=== PATIENT | female | born 1965 | race Hispanic/Latino ===

== ENCOUNTER 2017-12-24 07:02 | Emergency (ER) | payer SELFPAY ==
[2017-12-24] MEDS ORDERED: NA CHLORIDE 0.9% 1,000 ML ONE (07:19)
[2017-12-24] MEDS ORDERED: ONDANSETRON 4 MG/2 ML VIAL ONE (07:19)
[2017-12-24 07:42] LABS: Absolute Lymphocytes (CBC) 2.1 K/uL (0.7-4.9); Absolute Monocytes 0.5 K/uL (0.1-1.3); Absolute Neutrophil 2.8 K/uL (1.8-8.0); Basophils % 1.3 % (0-1.3); Eosinophils % 1.8 % (0-4.4); Hematocrit 43.4 % (36.0-45.0); MCH 31.7 pg (27.0-35.0); MCV 93.6 fL (80-100); MPV 8.4 fL (7.6-11.3); Monocytes % 8.2 % (3.3-12.3); RBC Red Blood Cell Count 4.64 M/uL (3.86-4.86)
[2017-12-24 07:46] LABS: Bicarbonate 22 mEq/L (21-31); Glucose Level 102 mg/dL (65-120); Potassium 4.1 mEq/L (3.6-5.0); Sodium Level 137 mEq/L (135-145)
[2017-12-24 07:49] LABS: BUN Blood Urea Nitrogen 12 mg/dL (6-20); Creatine Phosphokinase 207 IU/L (22-269)
[2017-12-24] MEDS ORDERED: MORPHINE 4 MG/ML SYR ONE (07:52)
[2017-12-24 07:55] LABS: CKMB Creatine Kinase MB 2.2 ng/ml (0.3-4.0)
[2017-12-24 08:25] LABS: Thyroid Stimulating Hormone 2.94 uIU/mL (0.34-5.60)
[2017-12-24 08:37] LABS: Alcohol Serum/Plasma < 10 mg/dl
--- NOTE | 2017-12-24 08:51 | RAD REPORT ---
EXAM DESCRIPTION: Ramu Single View12/24/2017 7:26 am CLINICAL HISTORY: Chest pain COMPARISON: 2015 FINDINGS: The lungs appear clear of acute infiltrate. The heart is normal size IMPRESSION: No acute abnormalities displayed
[2017-12-24 09:30] LABS: Barbiturates NEGATIVE; Benzodiazepines NEGATIVE; Cocaine NEGATIVE; METHAMPHETAM NEGATIVE; Opiates POSITIVE; Phencyclidine NEGATIVE; THC Cannibis NEGATIVE
[2017-12-24 09:41] LABS: Urine Blood NEGATIVE (NEG); Urine Glucose NEGATIVE (NEG); Urine Protein NEGATIVE (NEG); Urine Specific Gravity >1.030 (1.005-1.030); Urine pH 5.5 (5.0-7.0)
--- NOTE | 2017-12-24 09:55 | ER ---
Nurse's Notes [facility] Name: Angelica Wen Age: 52 yrs Sex: Female : 1965 Arrival Date: 12/24/2017 Time: 07:05 Bed 20 Private MD: Diagnosis: Chest pain, unspecified;Palpitations Presentation: 12/24 07:28 Presenting complaint: Patient states: Patient states sudden chest pain awoke her from ae1 her sleep at approx. 0100 this morning. pain radiates to left arm and she reports left arm feels "tingly". Transition of care: patient was not received from another setting of care. Onset of symptoms was December 24, 2017 at 01:00. Care prior to arrival: None. 07:28 Method Of Arrival: Ambulatory ae1 07:32 Acuity: DEVON 3 ae1 08:54 Initial Sepsis Screen: Does the patient meet any 2 criteria? RR > 20 per min. HR > 90 ae1 bpm. No. Patient's initial sepsis screen is negative. Does the patient have a suspected source of infection? No. Patient's initial sepsis screen is negative. 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 - Social history:: Smoking status: Patient uses tobacco products, smokes one pack cigarettes per day. - Family history:: not pertinent. - Hospitalizations: : No recent hospitalization is reported. Screenin:30 Abuse screen: Denies threats or abuse. Nutritional screening: No deficits noted. ae1 Tuberculosis screening: No symptoms or risk factors identified. Fall Risk None identified. Assessment: 07:18 Reassessment: [employer] Dried Salt at bedside obtaining chest x-ray. ae1 07:25 General: Appears distressed, uncomfortable, Behavior is cooperative, anxious, restless. ae1 Pain: Complains of pain in chest and left arm Pain radiates to left hand and left arm. Pain: Pain began suddenly. Neuro: Level of Consciousness is awake, alert, obeys commands, Oriented to person, place, time, situation. Cardiovascular: Heart tones S1 S2 present Patient's skin is warm and dry. Rhythm is regular. Respiratory: Airway is patent Respiratory effort is even, unlabored, shallow, Respiratory pattern is regular, symmetrical, Breath sounds are clear bilaterally. GI: Reports nausea, vomiting. : No signs and/or symptoms were reported regarding the genitourinary system. Reports Patient states she cannot urinate at this time as she already urinated prior to arrival. EENT: No signs and/or symptoms were reported regarding the EENT system. Derm: No signs and/or symptoms reported regarding the dermatologic system. Musculoskeletal: No signs and/or symptoms reported regarding the musculoskeletal system. 07:35 Reassessment: network technical analyst at bedside. ae1 07:57 Reassessment: Patient and/or family updated on plan of care and expected duration. Pain ae1 level reassessed. General: Behavior is cooperative, anxious. Neuro: Level of Consciousness is awake, alert, obeys commands. 08:35 Reassessment: Patient appears in no apparent distress at this time. Patient appears ae1 more relaxed. Patient states feeling better. 09:48 Reassessment: Patient appears in no apparent distress at this time. Patient and/or ae1 family updated on plan of care and expected duration. Pain level reassessed. Patient states symptoms have improved. 10:17 Reassessment: Patient appears in no apparent distress at this time. Patient denies pain ae1 at this time. Patient states symptoms have improved. Vital Signs: 07:15 BP 150 / 108; Pulse 117; Resp 24; Temp 98.2; Pulse Ox 100% on R/A; Weight 68.04 kg (R); ae1 07:33 BP 129 / 88; Pulse 93; Resp 19; Pulse Ox 96% on R/A; ae1 08:34 BP 121 / 73; Pulse 108; Resp 19; Pulse Ox 99% on R/A; ae1 09:49 BP 115 / 80; Pulse 103; Resp 19; Pulse Ox 97% on R/A; ae1 ED Course: 07:05 Patient arrived in ED. rg4 07:06 Edda Garcia MD is Attending Physician. ma2 07:06 Attending Physician role handed off by Edda Garcia MD rn 07:06 Modesto Saxena MD is Attending Physician. rn 07:15 Urbano, Joaquín, RN is Primary Nurse. ae1 07:20 Initial lab(s) drawn, by me, sent to lab. Inserted saline lock: 22 gauge in right hj antecubital area, using aseptic technique. Blood collected. 07:26 XRAY Chest (1 view) In Process Unspecified. EDMS 07:30 Patient maintains SpO2 saturation greater than 95% on room air. ae1 07:30 Placed in gown. Bed in low position. Call light in reach. Side rails up X2. Adult w/ ae1 patient. quality assurance monitor on. Pulse ox on. NIBP on. Warm blanket given. 07:30 Arm band placed on right wrist. ae1 07:32 Triage completed. ae1 07:44 EKG done, by network technical analyst. reviewed by Modesto Saxena MD. tc 10:17 No provider procedures requiring assistance completed. IV discontinued, intact, ae1 bleeding controlled, No redness/swelling at site. Pressure dressing applied. Administered Medications: 07:25 Drug: NS 0.9% 1000 ml Route: IV; Rate: 1000 ml; Site: right antecubital; ae1 08:53 Follow up: IV Status: Completed infusion ae1 07:25 Drug: Zofran 4 mg Route: IVP; Site: right antecubital; ae1 07:57 Follow up: Response: Nausea is decreased ae1 07:51 Drug: morphine 4 mg Route: IVP; Site: right antecubital; ae1 08:51 Follow up: Response: Pain is decreased ae1 Outcome: 09:55 Discharge ordered by . rn 10:18 Discharged to home ambulatory, with significant other. ae1 10:18 Condition: stable 10:18 Discharge instructions given to patient, significant other, Instructed on discharge instructions, follow up and referral plans. Demonstrated understanding of instructions. 10:19 Patient left the ED. ae1 Signatures: Dispatcher [employer] EDMS Modesto Saxena MD MD rn Callis, Tiffany, clinic mgr EKG Ttc William [place] RN RN hj Elliott, Andrea, RN RN ae1 Susan Ahumada rg4 Edda Garcia MD MD ma2
--- NOTE | 2017-12-24 09:56 | EDPHYS ---
Physician Documentation [facility] Name: Angelica Wen Age: 52 yrs Sex: Female : 1965 Arrival Date: 12/24/2017 Time: 07:05 Bed 20 Private MD: ED Physician Modesto Saxena HPI: 12/24 07:14 This 52 yrs old Female presents to ER via Unassigned with complaints of Chest rn Pain. 07:14 The patient or guardian reports chest pain that is located primarily in the substernal rn area. Onset: this morning. The pain radiates to the left arm. Associated signs and symptoms: Pertinent positives: lightheadedness, palpitations, Pertinent negatives: cough, diaphoresis, headache, lower extremity pain, lower extremity swelling, shortness of breath, syncope, vomiting. The chest pain is described as a heaviness, a pressure. Duration: The patient or guardian reports multiple episodes, that are intermittent. Modifying factors: The symptoms are alleviated by nothing. the symptoms are aggravated by nothing. Severity of pain: At its worst the pain was moderate in the emergency department the pain is unchanged. The patient has not experienced similar symptoms in the past. Reports chest pain and palpitations since 0100, woke her up from sleep, + pressure, + tingling of left arm. . 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 - Social history:: Smoking status: Patient uses tobacco products, smokes one pack cigarettes per day. - Family history:: not pertinent. - Hospitalizations: : No recent hospitalization is reported. ROS: 07:14 Constitutional: Negative for fever, chills, and weight loss, Eyes: Negative for injury, rn pain, redness, and discharge, Neck: Negative for injury, pain, and swelling, Cardiovascular: Negative for edema Respiratory: Negative for shortness of breath, cough, wheezing, and pleuritic chest pain, Abdomen/GI: Negative for abdominal pain, nausea, vomiting, diarrhea, and constipation, Back: Negative for injury and pain, MS/Extremity: Negative for injury and deformity, Skin: Negative for injury, rash, and discoloration, Neuro: Negative for headache, weakness, and seizure. Exam: 07:14 Constitutional: This is a well developed, well nourished patient who is awake, alert, rn appears anxious and concerned Head/Face: Normocephalic, atraumatic. Eyes: Pupils equal round and reactive to light, extra-ocular motions intact. Lids and lashes normal. Conjunctiva and sclera are non-icteric and not injected. Cornea within normal limits. Periorbital areas with no swelling, redness, or edema. Neck: Trachea midline, no thyromegaly or masses palpated, and no cervical lymphadenopathy. Supple, full range of motion without nuchal rigidity, or vertebral point tenderness. No Meningismus. Cardiovascular: tachycardic, regular, no murmur Respiratory: + mild tachypnea, no retractions, clear and equal breath sounds Abdomen/GI: Soft, non-tender, with normal bowel sounds. No distension or tympany. No guarding or rebound. No evidence of tenderness throughout. MS/ Extremity: Pulses equal, no cyanosis. Neurovascular intact. Full, normal range of motion. Equal circumference. Neuro: Awake and alert, GCS 15, oriented to person, place, time, and situation. Cranial nerves II-XII grossly intact. Motor strength 5/5 in all extremities. Sensory grossly intact. Cerebellar exam normal. Normal gait. 08:08 ECG was reviewed by the Attending Physician. rn Vital Signs: 07:15 BP 150 / 108; Pulse 117; Resp 24; Temp 98.2; Pulse Ox 100% on R/A; Weight 68.04 kg (R); ae1 07:33 BP 129 / 88; Pulse 93; Resp 19; Pulse Ox 96% on R/A; ae1 08:34 BP 121 / 73; Pulse 108; Resp 19; Pulse Ox 99% on R/A; ae1 09:49 BP 115 / 80; Pulse 103; Resp 19; Pulse Ox 97% on R/A; ae1 MDM: 07:07 Patient medically screened. rn 09:53 Differential diagnosis: acute myocardial infarction, acute pericarditis, anxiety, rn coronary artery disease costochondritis, esophagitis, gastritis, gastroesophageal reflux disease (GERD), pericarditis, pleurisy, pneumothorax. Data reviewed: vital signs, nurses notes, lab test result(s), EKG, radiologic studies, plain films, and as a result, I will discharge patient. Counseling: I had a detailed discussion with the patient and/or guardian regarding: the historical points, exam findings, and any diagnostic results supporting the discharge/admit diagnosis, lab results, radiology results, the need for outpatient follow up, to return to the emergency department if symptoms worsen or persist or if there are any questions or concerns that arise at home. Medical screen evaluation completed. [facility] emergency medical condition absent. Response to treatment: the patient's symptoms have markedly improved after treatment, symptom free, sleeping, and as a result, I will discharge patient. Special discussion: Based on the patient's history, exam, and Dx evaluation, there is no indication for emergent intervention or inpatient Tx. It is understood by the patient/guardian that if the Sx's persist or worsen they need to return immediately for re-evaluation. I discussed with the patient/guardian in detail that at this point there is no indication for admission to the hospital. It is understood, however, that if the symptoms persist or worsen the patient needs to return immediately for re-evaluation. ED course: Advised ETOh and smoking cessation, labs normal, repeat trop normal, UPT slight positive but beta negative, will dc home.. 12/24 07:13 Order name: Basic Metabolic Panel; Complete Time: 08:53 rn 12/24 07:13 Order name: BNP; Complete Time: 08: rn 12/24 07:13 Order name: CBC with Diff; Complete Time: 08: rn 12/24 07:13 Order name: Ckmb; Complete Time: 08: rn 12/24 07:13 Order name: CPK; Complete Time: 08:53 rn 12/24 07:13 Order name: Troponin (emerg Dept Use Only); Complete Time: 08:04 rn 12/24 07:13 Order name: Urine Drug Screen; Complete Time: 09:35 rn 12/24 07:13 Order name: ETOH Level; Complete Time: 08:53 rn 12/24 07:13 Order name: TSH; Complete Time: 08:53 rn 12/24 07:13 Order name: T4 Free; Complete Time: 08:53 rn 12/24 08:53 Order name: Troponin I; Complete Time: 09:46 ae1 12/24 09:13 Order name: HCG-Quantitative; Complete Time: 10:06 rn 12/24 09:23 Order name: Urine Dipstick--Ancillary (enter results); Complete Time: 09:46 bd 12/24 09:23 Order name: Urine --Ancillary (enter results); Complete Time: 09:46 bd 12/24 07:13 Order name: Urine Test (obtain specimen); Complete Time: 08:52 rn 12/24 07:13 Order name: XRAY Chest (1 view); Complete Time: 08:53 rn 12/24 07:13 Order name: EKG; Complete Time: 07:14 rn 12/24 07:13 Order name: Cardiac monitoring; Complete Time: 07:15 rn 12/24 07:13 Order name: EKG - Nurse/Tech; Complete Time: 07:47 rn 12/24 07:13 Order name: IV Saline Lock; Complete Time: 07:25 rn 12/24 07:13 Order name: Labs collected and sent; Complete Time: 07:25 rn 12/24 07:13 Order name: O2 Per Protocol; Complete Time: 07:15 rn 12/24 07:13 Order name: O2 Sat Monitoring; Complete Time: 07:15 rn 12/24 07:13 Order name: Urine Dipstick-Ancillary (obtain specimen); Complete Time: 08:52 rn EC:08 Rate is 94 beats/min. Rhythm is regular. QRS [place] is Normal. LA interval is normal. QRS rn interval is normal. QT interval is normal. No Q waves. T waves are Normal. No ST changes noted. Clinical impression: Normal ECG. Interpreted by me. Administered Medications: 07:25 Drug: NS 0.9% 1000 ml Route: IV; Rate: 1000 ml; Site: right antecubital; ae1 08:53 Follow up: IV Status: Completed infusion ae1 07:25 Drug: Zofran 4 mg Route: IVP; Site: right antecubital; ae1 07:57 Follow up: Response: Nausea is decreased ae1 07:51 Drug: morphine 4 mg Route: IVP; Site: right antecubital; ae1 08:51 Follow up: Response: Pain is decreased ae1 Disposition: 12/24/17 09:55 Discharged to Home. Impression: Chest pain, unspecified, Palpitations. - Condition is Stable. - Discharge Instructions: Nonspecific Chest Pain, Palpitations. - Medication Reconciliation Form, Thank You Letter, Antibiotic Education, Prescription Opioid Use form. - Follow up: Private Physician; When: As needed; Reason: Recheck today's complaints, Re-evaluation by your physician. - Problem is new. - Symptoms have improved. Signatures: Dispatcher [employer] EDMS Modesto Saxena MD MD rn Joaquín Clement RN RN ae1 Corrections: (The following items were deleted from the chart) 07:16 07:14 Constitutional: Negative for fever, chills, and weight loss, Eyes: Negative for rn injury, pain, redness, and discharge, Neck: Negative for injury, pain, and swelling, Cardiovascular: Negative for edema Respiratory: Negative for shortness of breath, cough, wheezing, and pleuritic chest pain, Abdomen/GI: Negative for abdominal pain, nausea, vomiting, diarrhea, and constipation, Back: Negative for injury and pain, MS/Extremity: Negative for injury and deformity, Skin: Negative for injury, rash, and discoloration, Neuro: Negative for headache, weakness, numbness, tingling, and seizure, rn 10:19 09:55 12/24/2017 09:55 Discharged to Home. Impression: Chest pain, unspecified; ae1 Palpitations. Condition is Stable. Forms are Medication Reconciliation Form, Thank You Letter, Antibiotic Education, Prescription Opioid Use. Follow up: Private Physician; When: As needed; Reason: Recheck today's complaints, Re-evaluation by your physician. Problem is new. Symptoms have improved. rn
[2017-12-24 10:24] VITALS: TEMP 98.2
[2017-12-24 10:27] VITALS: BP 115/80; O2SAT 97
--- NOTE | 2017-12-24 11:06 | EKG ---
Test Date: 2017-12-24 Test Time: 07:36:20 Fish Boning Machine Feeder: ROSA ELENA MEASUREMENT RESULTS: Intervals: Rate: 94 NH: 140 QRSD: 86 QT: 372 QTc: 465 [place]: P: 46 NH: 140 QRS: -19 T: 62 INTERPRETIVE STATEMENTS: Normal sinus rhythm Normal ECG Compared to ECG 08/07/2016 00:59:56 No significant changes Electronically Signed On 12-24-17 11:05:16 CDT by Partha Galindo
== END 2017-12-24 10:19 | disposition home or self-care (01) ==
LOC: ER 07:02
DX: R00.2 Palpitations (principal); F17.210 Nicotine dependence, cigarettes, uncomplicated; Z88.6 Allergy status to analgesic agent
CPT/HCPCS: 36415; 71045; 80048; 80307; 80320; 81003; 81025; 82550; 82553; 83880; 84439; 84443; 84484; 84702; 85025; 93005; 96361; 96374; 96375; 99285; J2405; J7030

== ENCOUNTER 2018-09-18 04:52 | Observation (INO) | payer SELFPAY ==
[2018-09-18 05:19] LABS: Absolute Lymphocytes (CBC) 1.7 K/uL (0.7-4.9); Absolute Monocytes 0.4 K/uL (0.1-1.3); Absolute Neutrophil 1.2 K/uL (1.8-8.0); Eosinophils % 4.3 % (0-4.4); Hematocrit 42.1 % (36.0-45.0); MPV 8.6 fL (7.6-11.3); Monocytes % 11.4 % (3.3-12.3); RBC Red Blood Cell Count 4.34 M/uL (3.86-4.86)
[2018-09-18] MEDS ORDERED: ONDANSETRON 4 MG/2 ML VIAL ONE (05:20)
[2018-09-18 05:32] LABS: BUN Blood Urea Nitrogen 14 mg/dL (7-18); Bicarbonate 25 mmol/L (21-32); Glucose Level 94 mg/dL (74-106); NT PRO-BNP 86 pg/mL (<125); Potassium 3.8 mmol/L (3.5-5.1); Sodium Level 142 mmol/L (136-145); Troponin (Emerg Dept Use Only) < 0.02 ng/mL (0.0-0.045)
[2018-09-18] MEDS ORDERED: PROMETHAZINE 25 MG/ML VIAL ONE (05:49)
--- NOTE | 2018-09-18 06:07 | ER ---
Nurse's Notes [facility] Name: Angelica Wen Age: 52 yrs Sex: Female : 1965 Arrival Date: 09/18/2018 Time: 04:55 Bed 8 Private MD: Diagnosis: Chest pain, unspecified Presentation: 09/18 04:52 Presenting complaint: Patient states: that she has been having chest pain, shortness of fc breath, nausea, vomiting, diarrhea and numbness to both hands for 3 days. Then yesterday started to have dizziness. Transition of care: patient was not received from another setting of care. Onset of symptoms was September 15, 2018. Risk Assessment: Do you want to hurt yourself or someone else? Patient reports no desire to harm self or others. Initial Sepsis Screen: Does the patient meet any 2 criteria? No. Patient's initial sepsis screen is negative. Does the patient have a suspected source of infection? No. Patient's initial sepsis screen is negative. Care prior to arrival: None. 04:52 Method Of Arrival: Wheelchair 04:52 Acuity: DEVON 3 fc Historical: - Allergies: 05:11 Aleve; fc - Home Meds: 05:11 None [Active]; fc - PMHx: 05:11 None; fc - PSHx: 05:11 None; fc - Immunization history:: Last tetanus immunization: up to date Flu vaccine is not up to date. - Social history:: Smoking status: Patient uses tobacco products, smokes one pack cigarettes per day. Patient uses alcohol, occasionally. Patient/guardian denies using street drugs. - Ebola Screening: : Patient negative for fever greater than or equal to 101.5 degrees Fahrenheit, and additional compatible Ebola Virus Disease symptoms Patient denies exposure to infectious person Patient denies travel to an Ebola-affected area in the 21 days before illness onset. - Family history:: not pertinent. - Hospitalizations: : No recent hospitalization is reported. Screenin:52 Fall Risk None identified. 05:09 Abuse screen: Denies threats or abuse. Nutritional screening: No deficits noted. Tuberculosis screening: No symptoms or risk factors identified. Assessment: 05:05 General: Appears uncomfortable, Behavior is calm, cooperative, appropriate for age. jd3 Pain: Complains of pain in chest Pain does not radiate. Quality of pain is described as sharp, Pain began 2-3 days ago. Is intermittent. Neuro: Level of Consciousness is awake, alert, obeys commands, Oriented to person, place, time, situation. Cardiovascular: Capillary refill < 3 seconds Patient's skin is warm and dry. Rhythm is regular. Respiratory: Airway is patent Respiratory effort is even, unlabored, Respiratory pattern is regular, symmetrical. GI: Abdomen is round non-distended, Reports nausea. : No signs and/or symptoms were reported regarding the genitourinary system. EENT: No signs and/or symptoms were reported regarding the EENT system. Derm: Skin is intact, Skin is dry, Skin is normal, Skin temperature is warm. Musculoskeletal: Circulation, motion, and sensation intact. Range of motion: intact in all extremities. 05:32 Reassessment: Patient appears in no apparent distress at this time. Patient and/or jd3 family updated on plan of care and expected duration. Pain level reassessed. Patient is alert, oriented x 3, equal unlabored respirations, skin warm/dry/pink. Patient states feeling better. 05:37 Reassessment: Assisted pt to bathroom. She continues to complain of nausea and chest fc pain. Discussed with Dr Saxena and new orders to be given. 06:30 Reassessment: Patient appears in no apparent distress at this time. Patient and/or jd3 family updated on plan of care and expected duration. Pain level reassessed. Patient is alert, oriented x 3, equal unlabored respirations, skin warm/dry/pink. Vital Signs: 04:52 BP 156 / 96; Pulse 75; Resp 18; Temp 98.7(O); Pulse Ox 99% on R/A; Weight 72.57 kg (R); Height 5 ft. 3 in. (160.02 cm) (R); Pain 10/10; 05:32 BP 135 / 98; Pulse 70; Resp 17 S; Pulse Ox 99% on R/A; jd3 06:30 BP 118 / 80; Pulse 74; Resp 16 S; Pulse Ox 99% on R/A; jd3 07:28 BP 111 / 79; Pulse 73; Resp 18; Temp 98.1; Pulse Ox 98% on R/A; ph 04:52 Body Mass Index 28.34 (72.57 kg, 160.02 cm) fc ED Course: 04:52 Arm band placed on Patient placed in an exam room, on a stretcher. fc 04:52 Patient has correct armband on for positive identification. Placed in gown. Bed in low fc position. Call light in reach. engine repairer on. Pulse ox on. NIBP on. 04:52 Inserted saline lock: 20 gauge in right antecubital area, using aseptic technique. fc ,using aseptic technique. per Suresh DOUGHERTY Blood collected. Patient maintains SpO2 saturation greater than 95% on room air. 04:55 Patient arrived in ED. es 04:59 Modesto Saxena MD is Attending Physician. rn 05:09 Triage completed. fc 05:15 Kapil Zapien RN is Primary Nurse. jd3 05:27 X-ray completed. Portable x-ray completed in exam room. Patient tolerated procedure kw well. 05:27 XRAY Chest (1 view) In Process Unspecified. EDMS 06:07 Edda Gonzalez MD is Hospitalizing Provider. rn 07:40 No provider procedures requiring assistance completed. Patient admitted, IV remains in hb place. Administered Medications: 05:16 Drug: Zofran 4 mg Route: IVP; Site: right antecubital; jd3 06:33 Follow up: Response: No adverse reaction jd3 05:44 Drug: Phenergan 12.5 mg Route: IVP; Site: right antecubital; jd3 06:34 Follow up: Response: No adverse reaction jd3 Point of Care Testing: Blood Glucose: 05:22 Blood Glucose: 95 mg/dL; jd3 Ranges: Outcome: 06:07 Decision to Hospitalize by Provider. rn 07:40 Admitted to Tele accompanied by tech, via wheelchair, room 219, with chart, Report hb called to LADONNA Moseley 07:40 Condition: stable 07:40 Instructed on the need for admit, Demonstrated understanding of instructions. 08:06 Patient left the ED. hb Signatures: Dispatcher [employer] EDMS Coni Thomas Felicia, LADONNA DOUGHERTY Modesto Saxena MD MD rn Whitley, Kimberlee kw Hall, Patricia, RN RN Arabella Vines RN RN Kapil Zapien RN RN jd3
--- NOTE | 2018-09-18 06:07 | EDPHYS ---
Physician Documentation [facility] Name: Angelica Wen Age: 52 yrs Sex: Female : 1965 Arrival Date: 09/18/2018 Time: 04:55 Bed 8 Private MD: ED Physician Modesto Saxena HPI: 09/18 05:44 This 52 yrs old Female presents to ER via Wheelchair with complaints of Chest rn Pain. 05:44 The patient or guardian reports chest pain that is located primarily in the substernal rn area. Onset: 3 day(s) ago. The pain does not radiate. Associated signs and symptoms: Pertinent positives: palpitations, shortness of breath. The chest pain is described as aching, dull. Duration: The patient or guardian reports multiple episodes, that are intermittent. Modifying factors: The symptoms are alleviated by nothing. the symptoms are aggravated by nothing. Severity of pain: At its worst the pain was mild in the emergency department the pain is unchanged. The patient has not experienced similar symptoms in the past. Reports diffuse chest pain, non-radiating, assoc with sob and nausea, + tingling of both hands. Began 3 days ago and intermittent. . Historical: - Allergies: 05:11 Aleve; fc - Home Meds: 05:11 None [Active]; fc - PMHx: 05:11 None; fc - PSHx: 05:11 None; fc - Immunization history:: Last tetanus immunization: up to date Flu vaccine is not up to date. - Social history:: Smoking status: Patient uses tobacco products, smokes one pack cigarettes per day. Patient uses alcohol, occasionally. Patient/guardian denies using street drugs. - Ebola Screening: : Patient negative for fever greater than or equal to 101.5 degrees Fahrenheit, and additional compatible Ebola Virus Disease symptoms Patient denies exposure to infectious person Patient denies travel to an Ebola-affected area in the 21 days before illness onset. - Family history:: not pertinent. - Hospitalizations: : No recent hospitalization is reported. ROS: 05:44 Constitutional: Negative for fever, chills, and weight loss, Eyes: Negative for injury, rn pain, redness, and discharge, Neck: Negative for injury, pain, and swelling, Cardiovascular: + chest pain Respiratory: + sob Abdomen/GI: + nausea Back: Negative for injury and pain, MS/Extremity: Negative for injury and deformity, Skin: Negative for injury, rash, and discoloration, Neuro: Negative for headache, weakness, and seizure. Exam: 05:44 Constitutional: This is a well developed, well nourished patient who is awake, alert, rn and in no acute distress. Head/Face: Normocephalic, atraumatic. Eyes: Pupils equal round and reactive to light, extra-ocular motions intact. Cardiovascular: Regular rate and rhythm, No pulse deficits. Respiratory: Lungs have equal breath sounds bilaterally, clear to auscultation, No increased work of breathing, no retractions or nasal flaring. Abdomen/GI: soft non-tender Skin: Warm, dry MS/ Extremity: Pulses equal, no cyanosis. Neurovascular intact. Full, normal range of motion. Equal circumference. Neuro: Awake and alert, GCS 15, oriented to person, place, time, and situation. Cranial nerves II-XII grossly intact. Motor strength 5/5 in all extremities. Sensory grossly intact. Cerebellar exam normal. Normal gait. Vital Signs: 04:52 BP 156 / 96; Pulse 75; Resp 18; Temp 98.7(O); Pulse Ox 99% on R/A; Weight 72.57 kg (R); fc Height 5 ft. 3 in. (160.02 cm) (R); Pain 10/10; 05:32 BP 135 / 98; Pulse 70; Resp 17 S; Pulse Ox 99% on R/A; jd3 06:30 BP 118 / 80; Pulse 74; Resp 16 S; Pulse Ox 99% on R/A; jd3 07:28 BP 111 / 79; Pulse 73; Resp 18; Temp 98.1; Pulse Ox 98% on R/A; ph 04:52 Body Mass Index 28.34 (72.57 kg, 160.02 cm) fc MDM: 04:59 Patient medically screened. rn 06:04 Differential diagnosis: acute myocardial infarction, acute pericarditis, anxiety, rn coronary artery disease chest wall pain, costochondritis, esophagitis, gastritis, gastroesophageal reflux disease (GERD), pleurisy, pneumothorax. Data reviewed: vital signs, nurses notes, lab test result(s), EKG, radiologic studies, plain films, and as a result, I will admit patient. Counseling: I had a detailed discussion with the patient and/or guardian regarding: the historical points, exam findings, and any diagnostic results supporting the discharge/admit diagnosis, lab results, radiology results, the need for further work-up and treatment in the hospital. Response to treatment: the patient's symptoms have mildly improved after treatment, and as a result, I will admit patient. Admission orders: after a detailed discussion of the patient's condition and case, the admit orders are written by me. 09/18 05:05 Order name: Basic Metabolic Panel; Complete Time: 05:35 rn 09/18 05:05 Order name: CBC with Diff; Complete Time: 05:35 rn 09/18 05:05 Order name: NT PRO-BNP; Complete Time: 05:35 rn 09/18 05:05 Order name: Troponin (emerg Dept Use Only); Complete Time: 05:35 09/18 05:40 Order name: Urine Dipstick--Ancillary (enter results) 09/18 05:40 Order name: Urine --Ancillary (enter results) 09/18 05:05 Order name: XRAY Chest (1 view) 09/18 06:16 Order name: Echo with Doppler [facility] 09/18 06:17 Order name: Lipid Profile [facility] 09/18 06:17 Order name: Lipid Profile [facility] 09/18 06:17 Order name: Troponin I [facility] 09/18 06:17 Order name: Troponin I [facility] 09/18 06:17 Order name: Troponin I [facility] 09/18 05:05 Order name: EKG; Complete Time: 05:06 09/18 05:05 Order name: Cardiac monitoring; Complete Time: 05:16 09/18 05:05 Order name: EKG - Nurse/Tech; Complete Time: 05:16 09/18 05:05 Order name: IV Saline Lock; Complete Time: 05:16 09/18 05:05 Order name: Labs collected and sent; Complete Time: 05:16 09/18 05:05 Order name: O2 Per Protocol; Complete Time: 05:16 09/18 05:05 Order name: O2 Sat Monitoring; Complete Time: 05:16 09/18 05:05 Order name: Glucose Level; Complete Time: 05:22 09/18 06:16 Order name: CONS Physician Consult [facility] 01/30 06:16 Order name: [facility] Administered Medications: 05:16 Drug: Zofran 4 mg Route: IVP; Site: right antecubital; jd3 06:33 Follow up: Response: No adverse reaction jd3 05:44 Drug: Phenergan 12.5 mg Route: IVP; Site: right antecubital; jd3 06:34 Follow up: Response: No adverse reaction jd3 Point of Care Testing: Blood Glucose: 05:22 Blood Glucose: 95 mg/dL; jd3 Ranges: Critical Glucose Levels:Adult <50 mg/dl or >400 mg/dl <40 mg/dl or >180 mg/dl Disposition: 09/18/18 06:07 Hospitalization ordered by Edda Gonzalez for Observation. Preliminary diagnosis is Chest pain, unspecified. - Bed requested for Telemetry/MedSurg (observation). - Status is Observation. hb - Condition is Stable. - Problem is new. - Symptoms have improved. UTI on Admission? No Signatures: Dispatcher [employer] [facility] Stefanie Rios RN RN Modesto Saxena MD MD rn Garcia, Cindy, RN RN Arabella Vines RN RN Kapil Zapien RN RN jd3 Corrections: (The following items were deleted from the chart) 06:23 06:07 Hospitalization Ordered by Edda Gonzalez MD for Observation. Preliminary cg diagnosis is Chest pain, unspecified. Bed requested for Telemetry/MedSurg (observation). Status is Observation. Condition is Stable. Problem is new. Symptoms have improved. UTI on Admission? No. rn 08:06 06:23 09/18/2018 06:07 Hospitalization Ordered by Edda Gonzalez MD for Observation. hb Preliminary diagnosis is Chest pain, unspecified. Bed requested for Telemetry/MedSurg (observation). Status is Observation. Condition is Stable. Problem is new. Symptoms have improved. UTI on Admission? No. cg
[2018-09-18] MEDS ORDERED: ACETAMINOPHEN 500 MG TAB PO PRN (06:10)
[2018-09-18] MEDS ORDERED: ALPRAZOLAM 0.25 MG TABLET PO PRN (06:10)
[2018-09-18 06:46] LABS: Urine Blood NEGATIVE (NEG); Urine Glucose NEGATIVE (NEG); Urine Protein NEGATIVE (NEG); Urine Specific Gravity 1.015 (1.005-1.030)
--- NOTE | 2018-09-18 08:26 | P.HP ---
Certification for Inpatient Patient admitted to: Observation With expected LOS: <2 Midnights Patient will require the following post-hospital care: None Practitioner: I am a practitioner with admitting privileges, knowledge of patient current condition, hospital course, and medical plan of care. Services: Services provided to patient in accordance with Admission requirements found in Title 42 Section 412.3 of the Code of Federal Regulations Patient History Date of Service: 09/18/18 Reason for admission: chest pain rule out acute coronary syndrome History of Present Illness: Patient is a 52-year-old female who was admitted to the hospital with chest pain. Patient has been having pain in the sternal region. Patient also has been having vertigo. She states whenever she sits up the room started spinning. This has been going on for the last couple of days as well. She was admitted to the hospital for further workup. In the ER her workup has been unremarkable. CT of the chest was negative. Patient's lab showed a leukopenia. However, patient did have increased lymphocyte count compared to the neutrophils. Patient be admitted to the hospital for further workup. Allergies naproxen [From Aleve] Allergy (Unverified 12/24/17 10:24) Unknown alieve Allergy (Uncoded 02/15/16 02:05) Unknown Home medications list reviewed: Yes - Past Medical/Surgical History Has patient received pneumonia vaccine in the past: No Diabetic: No Past Medical History: Patient denies medical history Past Surgical History: Patient denies surgical history - Family History Father Family History: Reviewed- Non-Contributory - Social History Smoking Status: Former smoker Alcohol use: No CD- Drugs: No Review of Systems 10-point ROS is otherwise unremarkable Physical Examination - Vital Signs Temperature: 98 F Blood Pressure: 140/80 Pulse: 85 Respirations: 18 Pulse Ox (%): 96 - Physical Exam General: Alert, In no apparent distress, Oriented x3 HEENT: Atraumatic, Normocephalic, PERRLA, Mucous membr. moist/pink, EOMI Neck: Supple, 2+ carotid pulse no bruit, JVD not distended, No Thyromegaly, No LAD Respiratory: Clear to auscultation bilaterally, Normal air movement Cardiovascular: Normal pulses, Regular rate/rhythm, Normal S1 S2, No murmurs Capillary refill: <2 Seconds Gastrointestinal: Normal bowel sounds, Non-distended, No tenderness, No rebound , No guarding Musculoskeletal: No clubbing, No swelling Integumentary: No rashes Neurological: Normal gait, Normal speech, Normal strength at 5/5 x4 extr, Normal tone, Sensation intact, Cranial nerves 3-12 intact Lymphatics: No axilla or inguinal lymphadenopathy - Studies Laboratory Data (last 24 hrs) 09/18/18 05:02: WBC 3.4 L, Hgb 14.2, Hct 42.1, Plt Count 202 09/18/18 05:02: Sodium 142, Potassium 3.8, BUN 14, Creatinine 0.64, Glucose 94 Assessment & Plan - Problems (Diagnosis) (1) Chest pain, rule out acute myocardial infarction Current Visit: Yes Status: Acute (2) Vertigo Current Visit: Yes Status: Acute (3) Leukopenia Current Visit: Yes Status: Acute - Plan 1. Serial troponins and EKG 2. Cardiology consultation 3. Echocardiogram 4. Anti-platelet therapy, anti coagulation, beta-zulay, statin, and O2 as needed 5. IV morphine for pain 6. Nitro p.r.n. 7. Consider MRI of the brain if vertigo continues 8. GI and DVT prophylaxis Discharge Plan: Home Plan to discharge in: 48 Hours - Advance Directives Does patient have a Living Will: No Does patient have a Durable POA for Healthcare: No - Code Status/Comfort Care Code Status Assessed: Yes Code Status: Full Code Critical Care: No Time Spent Managing PTS Care (In Minutes): 45
--- NOTE | 2018-09-18 08:52 | RAD REPORT ---
EXAM DESCRIPTION: RAD - Chest Single View - 09/18/2018 5:29 am CLINICAL HISTORY: CHEST PAIN Chest pain. COMPARISON: Chest Single View dated 12/24/2017; Chest Single View dated 08/07/2016; Chest Single View dated 02/14/2016; CHEST PA AND LAT 2 VIEW dated 08/09/2011 FINDINGS: Portable technique limits examination quality. The lungs are grossly clear. The heart is normal in size. No displaced fractures. IMPRESSION: No acute intrathoracic process suspected.
[2018-09-18] MEDS ORDERED: ASPIRIN EC 81 MG TAB PO SCH (09:00)
[2018-09-18] MEDS: ENOXAPARIN 40 MG/0.4 ML SQ SCH ×2 (09:00→09:08)
[2018-09-18 09:02] LABS: HDL Cholesterol 75 mg/dL (40-60); LDL Cholesterol, Calculated 90 (<130); Troponin I < 0.02 ng/mL (0.0-0.045)
[2018-09-18] MEDS: MORPHINE 4 MG/ML SYR IV PRN ×2 (09:06→16:34)
[2018-09-18] MEDS: MECLIZINE HCL 12.5 MG TAB PO SCH ×2 (09:07→14:38)
[2018-09-18] MEDS: CEFTRIAXONE/SWI 1gm 1 GM/10 ML SYR IV ONE ×2 (09:08→10:11)
--- NOTE | 2018-09-18 09:43 | ECHO ---
HEIGHT: 5 ft 3 in WEIGHT: 160 lb 0 oz DATE OF STUDY: 09/18/[address]: Edda Gonzalez MD 2-DIMENSIONAL: YES M.MODE: YES DOPPLER: YES COLOR FLOW: YES TDS: PORTABLE: DEFINITY: BUBBLE STUDY: DIAGNOSIS: CHEST PAIN, RULE OUT ACUTE CORONARY SYNDROME CARDIAC HISTORY: CATHERIZATION: NO SURGERY: NO PROSTHETIC VALVE: NO PACEMAKER: NO MEASUREMENTS (cm) DIASTOLIC (NORMALS) SYSTOLIC (NORMALS) IVSd 1.0 (0.6-1.2) LA Diam 3.1 (1.9-4.0) LVEF 60% LVIDd 3.8 (3.5-5.7) LVIDs 2.6 (2.0-3.5) %FS 31% LVPWd 1.1 (0.6-1.2) Ao Diam 2.5 (2.0-3.7) 2 DIMENSIONAL ASSESSMENT: RIGHT ATRIUM: NORMAL LEFT ATRIUM: NORMAL RIGHT VENTRICLE: NORMAL LEFT VENTRICLE: NORMAL TRICUSPID VALVE: NORMAL MITRAL VALVE: NORMAL PULMONIC VALVE: NORMAL AORTIC VALVE: NORMAL PERICARDIAL EFFUSION: NONE AORTIC ROOT: NORMAL LEFT VENTRICULAR WALL MOTION: NORMAL DOPPLER/COLOR FLOW: MILD TRICUSPID REGURGITATION. NORMAL RIGHT VENTRICULAR SYSTOLIC PRESSURE. COMMENTS: NORMAL 2-DIMENSIONAL ECHOCARDIOGRAM. MILD TRICUSPID REGURGITATION. TECHNOLOGIST: GURPREET CH
[2018-09-18] MEDS ORDERED: REGADENOSON 0.4 MG/5 ML SYR IV ONE (10:20)
[2018-09-18 10:32] VITALS: BMI 28.3
--- NOTE | 2018-09-18 12:29 | EKG ---
Test Date: 2018-09-18 Test Time: 05:00:32 Forensic Psychiatrist: ABDIRAHMAN MEASUREMENT RESULTS: Intervals: Rate: 78 MO: 166 QRSD: 90 QT: 382 QTc: 435 [place]: P: 36 MO: 166 QRS: -4 T: 46 INTERPRETIVE STATEMENTS: Normal sinus rhythm Normal ECG Compared to ECG 12/24/2017 07:36:20 No significant changes Electronically Signed On 09-18-18 12:28:01 RF TEST ENGINEER by Partha Galindo
--- NOTE | 2018-09-18 13:38 | CON ---
CARDIOLOGY CONSULT Attending Physician: Dr. Gonzalez. Chief Complaint: Chest pain. History Of Present Illness: Ms. Wen actually has a variety of complaints, when she stands up sh e gets dizzy, the room spins. When she sleeps at night, her arms and hands tend to fall asleep. She wakes up and rubs them and they wake up again and she has chest pain. She has had the chest pain of f and on over the past several years. This is the first time it has bothered her enough to seek [facility] attention. Since she has been in the hospital, cardiac enzymes are normal. She has no previous history of myocardial infarction or stroke or diabetes or hypertension. She takes no medicines. She is multigravid. She uses tobacco, but states she quit smoking 3 days ago. Allergies: SHE IS ALLERGIC TO NAPROXEN. NO OTHER ALLERGIES. Social History: Denies alcohol abuse, illegal drug use. Physical Examination: General: She appears to be her stated age, 5 feet 3 inch, 160 pounds, overweight. Neck: No carotid bruit. Lungs: Clear. Heart: Exam is within normal limits. Abdomen: Soft. Extremities: Revealed no cyanosis, clubbing, or edema. Distal pulses are normal. The left radial a rtery appears to be normal, but there appears to be a cyst between the skin and the artery. The cyst itself is not pulsatile. The electrocardiogram is not viewable at this time. Impression: The patient should have a pharmacologic nuclear stress test. We will see what we learn from that. She will also have an echocardiogram, serial cardiac enzymes. We will see what we need t o do to try and help. Of course, it is very good that she has quit smoking. We should encourage osmin t. Her chest x-ray is within normal limits, so we will see if we learn anything that is in need of f urther hospitalization such as a cardiac cath after looking at the preliminary test results. MICHAEL/AUSTYN Voice ID: [id number] Report ID: [id number]
--- NOTE | 2018-09-18 14:06 | RAD REPORT ---
EXAM DESCRIPTION: NM - Rest Stress Cardiac Imaging - 09/18/2018 1:59 pm CLINICAL HISTORY: Chest pain. COMPARISON: None. TECHNIQUE: The patient was administered approximately 10mCi of Tc 99m Sestamibi prior to resting SPE CT imaging of the heart. The patient was then administered approximately 30 mCi of Tc 99m Sestamibi f ollowing exercise or pharmacologic stress. Multiplanar SPECT images were reviewed. FINDINGS: There is uniformity of radiotracer uptake involving the entire left ventricular myocardiu m on rest and stress images. Left ventricular ejection fraction equals 66% IMPRESSION: Negative for a myocardial perfusion defect
[2018-09-18 14:08] VITALS: O2SAT 99
--- NOTE | 2018-09-18 15:55 | TREADPHA ---
DX: CHEST PAIN Date of Study: 09/18/2018 Ht: 5 3 Wt: 160 lb 0 oz Consulting Physician: DR. YOUSIF MEDICATIONS: TYLENOL, ASPIRIN, XANAX, LOVENOX, ANTIVENT HISTORY: 52 YEAR OLD FEMALE WITH COMPLAINTS OF CHEST PAIN. MEDICAL HISTORY: NONE. PHYSICIAL EXAMINATION: RESTING B.P.: 116/82 RESTING H.R.: 67 RESTING EKG: NORMAL PROTOCOL: LEXISCAN EXERCISE TIME: 3:30 B.P. AT PEAK STRESS: 126/90 IMPRESSION: LEXISCAN INJECTED, CARDIOLITE INJECTED PER PROTOCOL. SEE NUCLEAR MEDICAL REPORT. NO SUPRAVENTRICULAR TACHYCARDIA. NO VENTRICULAR TACHYCARDIA. NO PREMATURE VENTRICULAR COMPLEXES. CHEST PAIN 7/10 AFTER INJECTIONOF LEXISCAN TIGHTNESS. 0/10 IN RECOVERY. NON DIAGNOSTIC ELECTROCARDIOGRAM LEXISCAN STRESS.
[2018-09-18 17:48] VITALS: BP 125/87; TEMP 97.3
== END 2018-09-18 18:15 | disposition home or self-care (01) ==
LOC: ER 04:52 → ERHOLD 06:10 → 2ND 07:40
PROVIDERS: ADMIT Hospitalist; ATTEND Hospitalist
DX: R07.9 Chest pain, unspecified (principal); R42 Dizziness and giddiness; D72.819 Decreased white blood cell count, unspecified; Z87.891 Personal history of nicotine dependence
CPT/HCPCS: 36415; 71045; 78452; 80048; 80061; 81003; 81025; 82962; 83880; 84484; 85025; 93005; 93017; 93306; 96374; 96375; 97140; 97162; 99285; A9500; G0378; J0696; J1650; J2405; J2550; J2785

== ENCOUNTER 2022-07-07 16:09 | Emergency (ER) | payer OTHER, SELFPAY ==
--- OUTSIDE RECORDS SUMMARY | 2022-07-07 16:12 | XMS REPORT | Continuity of Care Document ---
:[address] [facility] t Address [address] [place] [place] [address] Care Team Providers Name Role Phone PCP, PATIENT DOES NOT HAVE A Primary Care Physician Unavaila Jak Alves Attending Clinician Unavailable Jak Davis Attending Clinician Doctor Unassigned, [place] Attending Clinician Unavailable Noe Meyer MD Attending Clinician Eleuterio Yeung MD Attending Clinician Johnnie Durham MD Attending Clinician [phone] Cortney Pereyra MD Attending Clinician Edu Junior MD Attending Clinician Provider, Unknown Attending Clinician Unavailable JOHNNIE DURHAM Admitting Clinician Unavailable Payers Payer Name Policy Type Policy Number Effective Date Expiration Date Lois weiss [facility] [id number] 2022 COMM 00:00:00 Problems Condition Condition Condition Status Onset Resolution Last Treating Co mments Source Name Details Category Date Date Treatment Clinician Date Transient Transient Disease Active Met hodi ischemic ischemic 7-10 st attack attack 00:00: Hospita 00 l No known No known Disease Unive rs active active ity of problems problems [facility] Allergies, Adverse Reactions, Alerts Allergy Allergy Status Severity Reaction(s) Onset Inactive Treating Comm ents Source Name Type Date Date Clinician Naproxen Propensi Active Hives Method i Sodium ty to 7-10 st adverse 00:00: Hospita reaction 00 l s to drug Naproxen Propensi Active Swelling Univ ers Sodium ty to 5 ity of adverse 00:00: [place] reaction 00 Medical s Branch Pamprin Propensi Active Swelling Unive rs ty to 5 ity of adverse 00:00: [place] reaction 00 Medical s Branch NAPROXEN DRUG Active Swelling Univer s SODIUM INGREDI 12-18 ity of 00:00: [place] 00 Medical Branch PAMPRIN DRUG Active Swelling Univers 501 ity of 00:00: [place] 00 Medical Branch Social History Social Habit Start Date Stop Date Quantity Comments Source History of tobacco Smokes tobacco Me thodist use daily Hospital Exposure to 2022-06-21 2022-07-01 Not sure [facility] SARS-CoV-2 (event) 00:00:00 21:15:00 [facility] Tobacco use and 2022-02-28 2022-02-28 Smokeless Confucianist exposure 00:00:00 00:00:00 tobacco non-user Hospital Alcohol intake 2022-02-28 2022-02-28 Current drinker [facility] 00:00:00 00:00:00 of alcohol Hospital (finding) Cigarettes smoked 2022-02-28 2022-02-[address] current (pack per 00:00:00 00:00:00 Hospita l day) - Reported Alcohol Comment 2022-02-26 2022-02-26 2 Confucianist 00:00:00 00:00:00 Hospital Cigarette 2015-02-28 2015-02-28 University of pack-years 00:00:00 00:00:00 [facility] Sex [birth year] At [birth year] [facility] 00:00:00 00:00:00 Hospital Smoking Status Start Date Stop Date Source Smokes tobacco daily 2022-02-28 00:00:00 [facility] Medications Ordered Filled Start Stop Current Ordering Indication Dosage Frequency Signature Comments Components Source Medication Medication Date Date Medication? Clinician (SIG) Name Name LORAZepam 2021- No 1mg [id number] Take 1 Methodi (Ativan) 1 04-06 [id number] tablet (1 st MG tablet 00:00: 04:59 3D mg total) Ho spita 00 :00 by mouth 3 l (three) times a day as needed for anxiety for up to 10 days. clopidogreL 2021- No 75mg QD Take 1 Met hodi (PLAVIX) 75 03-01 tablet (75 s t mg tablet 00:00: 04:59 mg total) Ho spita 00 :00 by mouth l daily for 30 days. atorvastati No 40mg QD Take 1 Met hodi n (LIPITOR) 02-28 tablet (40 s t 40 mg 00:00: 04:59 mg total) Hospit a tablet 00 :00 by mouth l nightly for 30 days. thiamine 2021- No 100mg QD Take 1 Metho di 100 MG 02-[address] tablet 00:00: 04:59 (100 mg Hospita 00 :00 total) by l mouth daily for 30 days. folic acid 2021- No 1mg QD Take 1 Meth girish (FOLVITE) 1 02-28 tablet (1 st MG tablet 00:00: 04:59 mg total) Ho spita 00 :00 by mouth l daily for 30 days. acetaminoph Yes [id number] 1{tbl} Take 1 Univers en-codeine 5-07 tablet by ity of 300-30 mg 00:00: mouth [place] tablet 00 every 4 Medical (four) Branch hours as needed for Pain (scale 4-6). ondansetron Yes [id number] 8mg Take 1 Univers (ZOFRAN) 8 5-07 tablet by ity of mg tablet 00:00: mouth [place] 00 every 8 Medical (eight) Branch hours as needed for Nausea and Vomiting (N/V). acetaminoph 2018- Yes [id number] 1{tbl} Take 1 Univers en-codeine 5-07 tablet by ity of 300-30 mg 00:00: mouth [place] tablet 00 every 4 Medical (four) Branch hours as needed for Pain (scale 4-6). ondansetron 2018- Yes [id number] 8mg Take 1 Univers (ZOFRAN) 8 5-07 tablet by ity of mg tablet 00:00: mouth [place] 00 every 8 Medical (eight) Branch hours as needed for Nausea and Vomiting (N/V). cyclobenzap 2017-0 Yes 5mg Take 1 Univ ers rine 5 mg 5-01 tablet by ity o f tablet 00:00: mouth 3 00 (three) Medical times Branch daily. cyclobenzap 2018-0 Yes 5mg Take 1 Univ ers rine 5 mg 5-01 tablet by ity o f tablet 00:00: mouth 3 [place] 00 (three) Medical times Branch daily. famotidine Yes 20mg Take 1 Unive rs (PEPCID) 20 9-07 tablet by [place]y of mg tablet 00:00[place] 00 bedtime. [place] alum-mag Yes 30mL Apply 30 Unive rs hydroxide-s 9-07 mL to ity of imeth 00:00: area(s) [place] (MAALOX 00 every 6 Medical PLUS) (six) Branch 200-200-20 hours as mg/5 mL needed suspension (CHEST PAIN). famotidine Yes 20mg Take 1 Unive rs (PEPCID) 20 9-07 tablet by [place]y of mg tablet 00:00: [place] bedtime. [place] alum-mag 0 Yes 30mL Apply 30 Unive rs hydroxide-s 9-07 mL to ity of imeth 00:00: area(s) [place] (MAALOX 00 every 6 Medical PLUS) (six) Branch 200-200-20 hours as mg/5 mL needed suspension (CHEST PAIN). aspirin 81 2015-0 Yes 81mg Take 1 Tab U nivers mg EC 7-12 by mouth ity of tablet 00:00: daily. [place] 00 Medical Branch famotidine 0 Yes 40mg Take 1 Tab U nivers (PEPCID) 40 7-12 by mouth ity of mg tablet 00:00: at [place] [address] bedtime. Medical Branch aspirin 81 0 Yes 81mg Take 1 Tab U nivers mg EC 7-12 by mouth ity of tablet 00:00: daily. [place] [address] Medical [place] famotidine 0 Yes 40mg Take 1 Tab U nivers (PEPCID) 40 7-12 by mouth ity of mg tablet 00:00: at [place] [address] bedtime. Medical Branch Vital Signs Vital Name Observation Time Observation Value Comments Source Systolic blood 2022-07-02 03:16:00 147 mm[Hg] Univer sity of pressure [facility] Diastolic blood 2022-07-02 03:16:00 88 mm[Hg] Unive rsity of [facility] Heart rate 2022-07-02 03:16:00 79 /min [facility] Body temperature 2022-07-02 03:16:00 37.06 [place] [facility] Respiratory rate 2022-07-02 03:16:00 18 /min [facility] Body height 2022-07-02 03:16:00 160 cm [facility] Body weight 2022-07-02 03:16:00 63.504 kg [facility] BMI 2022-07-02 03:16:00 24.80 kg/m2 [facility] Oxygen saturation in 2022-07-02 03:16:00 100 /min [facility] Arterial blood by [facility] Pulse oximetry [place] Systolic blood 2022-04-06 23:46:00 145 mm[Hg] [facility] pressure Diastolic blood 2022-04-06 23:46:00 80 mm[Hg] [facility] pressure Heart rate 2022-04-06 23:46:00 77 /min [facility] Body temperature 2022-04-06 23:46:00 37.06 [place] [facility] Respiratory rate 2022-04-06 23:46:00 18 /min [facility] Oxygen saturation in 2022-04-06 23:46:00 98 /min [facility] [place] Arterial blood by Pulse oximetry Body height 2022-04-06 19:26:00 167.6 cm [facility] Body weight 2022-04-06 19:26:00 67.586 kg [facility] BMI 2022-04-06 19:26:00 24.05 kg/m2 [facility] Procedures Procedure Date / Time Performing Clinician Source Performed NOTICE OF PRIVACY 2022-07-02 03:10:05 Doctor Unassigned, No Univ [facility] PRACTICES Name Medical Branch CONSENT/REFUSAL FOR 2022-07-02 03:09:44 [facility] Name Medical Branch ECG 12-LEAD 2022-04-06 20:46:[address] [facility] [address] ANGIOGRAM NECK W WO 2022-04-06 19:45:19 [facility] CONTRAST CT ANGIOGRAM HEAD W WO 2022-04-06 19:44:[address] [facility] [address] CT STROKE BRAIN WO 2022-04-06 19:27:12 [facility] CONTRAST ECG ED PRELIMINARY 2022-04-06 19:24:40 [facility] INTERPRETATION [place] CRITICAL CARE, E/M 2022-04-06 19:24:40 [facility] 30-74 MINUTES HC COMPLETE BLD COUNT 2022-04-06 19:20:00 [facility] W/AUTO DIFF PARTIAL THROMBOPLASTIN 2022-04-06 19:20:00 [facility] TIME (PTT) PROTHROMBIN TIME WITH INR 2022-04-06 19:[facility]00 [facility] [place] COMPREHENSIVE METABOLIC 2022-04-06 19:20:00 [facility] PANEL TROPONIN T 2022-04-06 19:20:00 [facility] ESTIMATED GFR 2022-04-06 19:20:00 [facility] POC GLUCOSE 2022-04-06 19:15:00 Provider, Unknown [facility] [place] ZZCOVID-19 SEROLOGY 2022-02-28 08:42:00 Feroz Albert [facility] PATIENT SURVEILLANCE Shreyas ESTIMATED GFR 2022-02-28 08:42:00 [facility] ospital [place] SMEAR REVIEW 2022-02-28 08:42:00 [facility] ZZCOVID-19 ANTI-SPIKE IGG 2022-02-28 08:42:00 Feroz Albert [facility] ANTIBODY TITER Shreyas HC COMPLETE BLD COUNT 2022-02-28 08:42:00 [facility] W/AUTO DIFF [place] BASIC METABOLIC PANEL 2022-02-28 08:42:00 [facility] PARTIAL THROMBOPLASTIN 2022-02-27 16:11:00 [place] [facility] (PTT[facility] MRI CERVICAL SPINE WO 2022-02-27 15:03:16 [facility] CONTRAST MRI BRAIN WO CONTRAST 2022-02-27 14:32:31 Rosibel Thompson [facility] [place] HC COMPLETE BLD COUNT 2022-02-27 09:49:00 [facility] W/AUTO DIFF [place] BASIC METABOLIC PANEL 2022-02-27 09:49:00 [facility] [place] ESTIMATED GFR 2022-02-27 09:49:00 [facility] ospital [place] SMEAR REVIEW 2022-02-27 09:49:00 [facility] POST TPA BRAIN WO 2022-02-27 09:00:00 [facility] CONTRAST CT HEAD WO CONTRAST 2022-02-27 03:13:28 [facility] [place] US ABDOMINAL LIMITED 2022-02-26 18:40:00 Kelley Angel [facility] XR SHOULDER 2+ VW LEFT 2022-02-26 17:58:00 [facility] TTE COMPLETE W AGITATED 2022-02-26 17:38:00 MequonRosibel [facility] SALINE W CONT W DOP HEMOGLOBIN A1C 2022-02-26 14:07:00 [facility] ospital [place] LIPID PANEL 2022-02-26 14:07:00 [facility] THYROID STIMULATING 2022-02-26 14:07:00 [facility] HORMONE [place] TROPONIN T 2022-02-26 14:07:00 [facility] POC GLUCOSE 2022-02-26 10:42:00 [facility]ital [facility] COVID-19 QUALITATIVE 2022-02-26 10:09:00 [facility] RT-PCR CT HEAD WO CONTRAST 2022-02-26 09:35:34 [facility] URINALYSIS SCREEN AND 2022-02-26 08:23:00 [facility] MICROSCOPY, WITH REFLEX TO CULTURE URINE DRUGS OF ABUSE 2022-02-26 08:23:00 [facility] SCREEN ECG 12-LEAD 2022-02-26 08:22:26 [facility] CT ANGIOGRAM HEAD W WO 2022-02-26 08:21:19 [facility] CONTRAST CT ANGIOGRAM NECK W WO 2022-02-26 08:21:00 [facility] CONTRAST CT STROKE BRAIN WO 2022-02-26 08:10:59 [facility] CONTRAST HC COMPLETE BLD COUNT 2022-02-26 08:00:00 [facility] W/AUTO DIFF PARTIAL THROMBOPLASTIN 2022-02-26 08:00:00 [facility] TIME (PTT) PROTHROMBIN TIME WITH INR 2022-02-26 08:00:00 [facility] COMPREHENSIVE METABOLIC 2022-02-26 08:00:00 [facility] PANEL TROPONIN T 2022-02-26 08:00:00 [facility] B NATRIURETIC PEPTIDE 2022-02-26 08:00:00 [facility] ALCOHOL LEVEL, BLOOD 2022-02-26 08:00:00 [facility] ESTIMATED GFR 2022-02-26 08:00:00 [facility] ECG ED PRELIMINARY 2022-02-26 07:58:17 [facility] INTERPRETATION [place] CR[facility] [place], E/M 2022-02-26 07:58:17 [facility] 30-74 MINUTES POC GLUCOSE 2022-02-26 07:53:00 Provider, Unknown [facility] [place] Plan of Care Planned Activity Planned Date Details Comments Source Future Scheduled 2022-07-06 HEPATITIS B VACCINES Met [facility] Test 13:41:58 (1 of 3 - 3-dose series) [code = HEPATITIS B VACCINES (1 of 3 - 3-dose series)] Future Scheduled 2022-07-06 COVID-19 VACCINE (#1) [facility] Test 13:41:58 [code = COVID-19 VACCINE (#1)] Future Scheduled 2022-07-06 Pneumococcal Vaccine: [facility] Test 13:41:58 Pediatrics (0 to 5 Years) and At-Risk Patients (6 to 64 Years) (1 - PCV) [code = Pneumococcal Vaccine: Pediatrics (0 to 5 Years) and At-Risk Patients (6 to 64 Years) (1 - PCV)] Future Scheduled 2022-07-06 Hepatitis C screening [facility] Test 13:41:58 (procedure) [code = 697482410] Future Scheduled 2022-07-06 Screening for [facility] [place] Test 13:41:58 malignant neoplasm of cervix (procedure) [code = 637693600] Future Scheduled 2022-07-06 BREAST CANCER [facility] [place] Test 13:41:58 SCREENING [code = BREAST CANCER SCREENING] Future Scheduled 2022-07-06 COLONOSCOPY SCREENING [facility] Test 13:41:58 [code = COLONOSCOPY SCREENING] Future Scheduled 2022-07-06 SHINGLES VACCINES (1 Met [facility] Test 13:41:58 of 2) [code = SHINGLES VACCINES (1 of 2)] Future Scheduled 2022-07-06 INFLUENZA VACCINE Method [facility] Test 13:41:58 [code = INFLUENZA VACCINE] Encounters Start End Encounter Admission Attending Care Care Encounter Source Date/Time Date/Time Type Type Clinicians Facility Department ID 2021-06-18 Emergency [facility] [id number] Univers 07:39:50 ity of [facility] 2022-07-01 2022-07-01 Emergency X Jak DEWEY [facility] ERT [id number] Univers 21:22:00 22:04:00 ity of [facility] 2022-07-01 2022-07-01 Emergency Jak Dewey [facility] 1.2.840.114 [id number] Univers 21:22:00 22:04:00 Betzy GUI 350.1.13.10 i ty of [place] 4.2.7.2.[address] [facility] [id number] [facility] 084 Branch 2022-07-01 2022-07-01 Orders Doctor ORALIA 1.2.840.114 [id number] Univers 00:00:00 00:00:00 Only Unassigned, RAFAELA 350.1.13.10 ity of [place] [facility] [address] [place] [address] [id number] [facility] 009 Branch 2022-04-06 2022-04-06 Emergency Mitch, 1.2.840.1 [id number] Methodi 14:13:00 19:43:00 Noe Branch [address] 3.430.2.7 Hospit a .3.156666 l .8 2022-04-06 2022-04-06 Emergency [facility] 064 [id number] [place] 00:00:00 00:00:00 [address] 2022-02-26 2022-02-28 Hospital Eleuterio Yeung 1.2.840.1 [id number] Methodi 02:58:00 15:06:00 Encounter Johnnie Durham 81454.1.[address] Cortney Pereyra 3.430.2.7 Hospita Edu Junior .3.701881 l .8 2022-02-26 2022-02-28 Inpatient [facility] 012 [id number] [address] [place] 00:00:00 00:00:00 EDU [address] i [address] 2022-02-27 2022-02-27 Documentat Provider, 1.2.840.1 [id number] Methodi 00:00:00 00:00:00 ion Unknown 21205.1.[address] 3.430.2.7 Hospit a .3.552290 l .8 Results Test Description Test Time Test Comments Results Result Comments Source ECG 12 lead 2022-04-10 15:52:02 Test Item Value Reference Range Interpretation Comme nts Ventricular rate (test code = 253) Atrial rate (test code = 255) [place] interval (test code = 266) QRSD interval (test code = 260) QT interval (test code = 264) QTC interval (test code = 265) P axis 1 (test code = 267) QRS axis 1 (test code = 268) T wave axis (test code = 270) EKG impression (test code = 273) Normal sinus rhythm-Normal ECG- [facility] hvdfmku0717-21-32 15:43:00 Test Item Value Reference Range Interpretation Comments POC glucose (test code 128 mg/dL 65-[address] [facility] Name: = [id number]) Margarette Jordan Device ID: [id number] Lab Interpretation Abnormal (test code = 45279-0) [facility], (w Contrast, Strain and 3D if needed)2022-02-27 14:48:13 Test Item Value Reference Interpretation Comments Range EF (test code = 54 % 54-74 0520595033) LV EF,BP (test code 64.60 % = 7576086797) IVS,d (test code = 0.89 cm 0.6-0.9 6933566121) IVS s 2D (test code 1.17 cm = 0746114599) LVPWD,d (test code = 1.34 cm 0.60-1.19 A 3252899735) LVPW s PLAX (test 1.48 cm code = 4993534436) LV,s (test code = 3.22 cm 5364601968) LVOT Diam,S (test 2.01 cm code = 6544208964) LV NGUYEN VOL (test 90.68 ml 46-106 code = 8613069910) LV SYS VOL (test 41.50 ml 14-42 code = 7040152795) LV Vol,d A2C (test 64.00 mL code = 0497361271) LV Vol,s A2C (test 21.18 mL code = 9316760723) LV Vol,d A4C (test 38.31 ml code = 8384892161) LV Vol,s A4C (test 14.80 ml code = 9097735027) MV Peak E Westley (test 0.50 m/s code = 0399826317) MV Peak A [place] (test 0.57 m/s code = 8580760277) E/A ratio (test code See_Comment A [Autom ated = 9127801893) message] The system which generated this result transmitted reference range : <=0.8. The reference range was not used to interpret this result as normal/abnormal . E wave decelartion See_Comment A [Automat ed time (test code = message] T he 0871877432) system which generated this result transmitted reference range : 200 msec. The reference range was not used to interpret this result as normal/abnormal . LV Systolic Volume 11.97 mL/m2 8-24 Index (test code = 1296215258) LV Diastolic Volume 36.16 mL/m2 29-61 Index (test code = 2013023099) LV,d (test code = 4.46 cm 9978803342) IVS/LVPW,2D (test code = 9302030058) LV EF,2D (test code 62.55 % = 6602872167) LV FS Cube 2D (test code = 2562922342) LV FS Teich 2D (test code = 6455250532) LV SI [place] 2D (test 27.79 ml/m2 code = 0909085430) LV SV [place] 2D (test 49.19 ml code = 2138391650) LV Vol s Teich PSAX 41.50 ml (test code = 0911024756) LVOT stroke volume 0.63 cm3 (test code = 1602638347) Left Atrium 2.60 cm See_Comment [Automated Dimension Anterior message] The (test code = system which 1475642975) generated this result transmitted reference range : <=3.8. The reference range was not used to interpret this result as normal/abnormal . LA Vol MOD A4C (test 36.77 ml code = 2119168737) LA area s A4C (test 15.60 cm2 code = 2176768730) LVOT area (test code 3.17 cm2 = 9018938895) LVOT Vmax (test code 1.02 m/s = 9276894564) AoV Mean PG (test See_Comment [Automate d code = 6146812496) message] The system which generated this result transmitted reference range : 20 mmHg. The reference range was not used to interpret this result as normal/abnormal . AoV Peak PG (test mmHg code = 3564171005) AV LVOT peak mmHg gradient (test code = 4336958013) AoV area i VTI BSA 1.50 cm2/m2 See_Comment [Automat ed [place] (test code = message] The 4602266208) system which generated this result transmitted reference range : >=0.85. The reference range was not used to interpret this result as normal/abnormal . AoV Area, Vmax (test 2.75 cm2 See_Comment [Autom ated code = 0171552080) message] The system which generated this result transmitted reference range : >=1.5. The reference range was not used to interpret this result as normal/abnormal . LVOT VTI (CM) (test 20.00 cm code = 3625193493) AoV Vmax (test code 1.17 m/s = 8668953584) AoV Vmn (test code = 0.93 m/s 4964116012) AoV Area, VTI (test 2.65 cm2 code = 2230133445) LVOT SI (test code = 34.99 ml/m2 6470122427) Velocity Ratio 0.87 m/s (V1/V2) (test code = 4689) MV mean gradient See_Comment [Automated (test code = message] The 2020383027) system which generated this result transmitted reference range : 5 mmHg. The reference range was not used to interpret this result as normal/abnormal . MR peak grad (test mmHg code = 8486673536) MV stenosis pressure 49.41 ms See_Comment [Autom ated 1/2 time (test code message] The = 5770384684) system which generated this result transmitted reference range : <=150. The reference range was not used to interpret this result as normal/abnormal . MV E A ratio (test code = 5088817119) MV valve area p 1/2 4.45 cm2 method (test code = 7349773257) MV VTI Tips (test 0.20 m code = 5454714032) MV Vmax (test code = 0.69 m 5726013913) RVSP (test code = See_Comment [Automate d 9630038323) message] The system which generated this result transmitted reference range : 40.00 mmHg. The reference range was not used to interpret this result as normal/abnormal . RA pressure (test mmHg code = 8664902899) TR pk grad (test mmHg code = 7076947526) TR Vpeak (test code 1.78 m/s = 2149805424) RVSP (TR) (test code mmHg = 9060185586) RVOT Vmax (test code 0.75 m/s = 9105723800) PV Pk Grad (test See_Comment [Automated code = 3085776690) message] The system which generated this result transmitted reference range : 36 mmHg. The reference range was not used to interpret this result as normal/abnormal . RVOT pk grad (test mmHg code = 6935373541) PV VMAX (test code = 0.87 m/s See_Comment [Autom ated 2952976373) message] The system which generated this result transmitted reference range : <=3. The reference range was not used to interpret this result as normal/abnormal . Ao Root Diameter 2.56 cm See_Comment [Automated (test code = message] The 6945706279) system which generated this result transmitted reference range : <=3.99. The reference range was not used to interpret this result as normal/abnormal . Ao Root Diameter 2.56 cm (test code = 5881520942) BSA (test code = 1.77 m2 7592142336) BSA [place] (test code 1.80 m2 = 7260817285) BSA [place] (test 1.79 m2 code = 2064489258) Pred METS R1 (test code = 4821667796) Pred Exer Dur R1 (test code = 7675160286) MV Decel slope (test 2.91 m/s2 code = 0111275087) LVPW pct thck PLAX 10.42 % (test code = 8173309345) LV vol s cube 2D 33.30 ml (test code = 1650984018) LV vol d cube 2D 88.91 ml (test code = 7850445569) LV SV Cube 2D (test 55.61 ml code = 4477482530) LV SI Cube 2D (test 31.42 ml/m2 code = 1662168667) IVS pct thck PLAX 31.36 % (test code = 8226979130) Calc MPHR (test code bpm = 6137969077) AoV area I VMN bsa 1.32 cm2/m2 (test code = 5563872494) 85 of MPHR (test code = 9821855845) MAX Pred HR (test code = 6002145627) LVOT mean grad (test mmHg code = 2932141595) LA A_P score P (test code = 0345938768) Aov area Vmn (test 2.33 cm2 code = 9767298742) Pt Wt (test code = 6611303856) Pt Size (test code = 9105053549) MV AE ratio (test code = 6323655528) LVOT Vmn (test code = 8555017927) PV Vmn (test code = 9.91 m/s 6240509113) LV Vol Index s bpmod 27.99 ml/m2 BSA [place] (test code = 9889488120) LV SI MOD BP BSA 18.08 ml/m2 [place] (test code = 4221097676) BMI (test code = 24.21 kg/m2 9483574896) LV Vol,s BP (test 17.54 nl code = 5234001375) LV Vol,d BP (test 49.54 ml code = 4351482450) LV SV,BP (test code 32.01 % = 4185460320) LV SV,A4C (test code 23.51 % = 8149541189) LV SV,A2C (test code 42.82 % = 1307144988) Eric [place],s A4C (test 5.61 cm code = 1585030941) Eric [place],s A2C (test 5.44 cm code = 8637955074) Eric [place],d A4C (test 6.44 cm code = 5562154912) Eric [place],d A2C (test 6.48 cm code = 6855169290) LV EF,A4C (test code 61.36 % = 5634222356) LV EF,A2C (test code 66.90 % = 8447287068) AoV VTI (test code = 0.23 m [id number]) LVOT VTI (test code 0.20 m = [id number]) VEL (test code = VEL) Left Ventricle: Normal systolic function with a visually estimated EF of 50 - 55%. Grade I (impaired relaxation) diastolic dysfunction. Right Ventricle: Right ventricle size is normal. Normal systolic function. Tricuspid Valve: Mild valvular regurgitation. Left Atrium: No ASD present. No PFO present. Left VentricleLeft ventricle size is normal. Normal wall thickness. Normal systolic function with a visually estimated EF of 50 - 55%. Grade I (impaired relaxation) diastolic dysfunction.Right VentricleRight ventricle size is normal. Normal systolic function.Left AtriumLeft atrium size is normal. No ASD present. No PFO present.Right AtriumRight atrium size is normal.IVC/SVCIVC diameter is less than or equal to 21 mm and decreases greater than 50% during inspiration; therefore the estimated right atrial pressure is normal (~3 mmHg).Mitral ValveValve structure is normal. No significant valvular regurgitation. No stenosis.Tricuspid ValveValve structure is normal. Mild valvular regurgitation. No stenosis.Aortic ValveValve structure is normal. No significant valvular regurgitation. No stenosis.Pulmonic ValveValve structure is normal. No significant valvular regurgitation. No stenosis.Pericardium There is no pericardial effusion present.AortaNormal sized annulus.Study DetailsStudy quality was adequate. A complete 2D, color flow Doppler and spectral Doppler echocardiogram was performed.The apical, parasternal, subcostal and suprasternal views were obtained. Definity and saline ultrasound enhancing agent used. Lab Interpretation Abnormal (test code = 24867-6) Confucianist [id number] (COVID-19) RNA [Presence] in Respiratory specimen by SHANTEL with probe [id number] 12:30:15 Test Item Value Reference Range Interpretation Comments SARS-CoV-2 (COVID-19) RNA Not detected [Presence] in Respiratory specimen by SHANTEL with probe detection (test code = 02890-5) Whether patient is employed in a Unknown healthcare setting (test code = 78132-4) Whether the patient has symptoms Unknown related to condition of interest (test code = 18452-8) Whether the patient was Unknown hospitalized for condition of interest (test code = 16591-6) Whether the patient was admitted Unknown to intensive care unit (ICU) for condition of interest (test code = 19717-9) Whether patient resides in a Unknown congregate care setting (test code = 59908-4) status (test code = Unknown 88920-6) Date and time of symptom onset Unknown (test code = 09421-3) [facility]
--- NOTE | 2022-07-07 18:10 | ER ---
Nurse's Notes [facility] Name: Angelica Wen Age: 56 yrs Sex: Female : 1965 Arrival Date: 07/07/2022 Time: 16:13 Bed Waiting Private MD: Diagnosis: ED Course: 07/07 16:13 Patient arrived in ED. as 16:46 Jose Carlos Dumont is PHCP. jl9 16:46 Prakash Garay MD is Attending Physician. jl9 18:05 Patient's name was called from ER [facility]. No response. vg1 18:10 Patient's name was called from ER [facility]. No response. Unable to locate patient. Will vg1 disposition as left without being seen by a provider. Administered Medications: No medications were administered Outcome: 18:10 Patient left the ED. vg1 Signatures: Jennifer Garcia Victoria, RN RN vg1 Jose Carlos Dumont jl9
== END 2022-07-07 18:10 | disposition left against medical advice (07) ==
LOC: ER 16:09
DX: Z02.9 Encounter for administrative examinations, unspecified (principal)

== ENCOUNTER 2023-11-30 11:52 | Emergency (ER) | payer OTHER, SELFPAY ==
[2023-11-30 12:18] LABS: Absolute Basophils 0.1 K/uL (0-0.5); Absolute Eosinophils 0.1 K/uL (0-0.5); Absolute Monocytes 0.4 K/uL (0.1-1.3); Absolute Neutrophil 2.7 K/uL (1.8-8.0); Basophils % 1.3 % (0-1.3); Eosinophils % 1.3 % (0-4.4); Hemoglobin 13.3 g/dL (12.0-15.0); Lymphocytes % 38.2 % (15.3-44.8); MCH 33.8 pg (27.0-35.0); MCHC 34.9 g/dL (32.0-36.0); Neutrophils % 52.2 % (41.7-73.7); Platelets 191 thou/uL (152-406); RBC Red Blood Cell Count 3.92 M/uL (3.86-4.86); Red Cell Distribution Width 13.3 % (12.1-15.2)
[2023-11-30 12:24] LABS: PT Prothrombin Time 11.1 SECONDS (9.5-12.5); PTT, Activated Partial Thromb 29.7 SECONDS (24.3-36.9); Protime INR 1.01
[2023-11-30] MEDS ORDERED: PROMETHAZINE INJ 25 MG/ML AMP ONE (12:26)
[2023-11-30] MEDS ORDERED: NA CHLORIDE 0.9% 1,000 ML ONE (12:27)
[2023-11-30 12:36] LABS: ALT/SGPT 28 U/L (13-56); AST/SGOT 24 U/L (15-37); Albumin 3.6 g/dL (3.4-5.0); Albumin/Globulin Ratio 1.1 (1.1-1.8); Alkaline Phosphatase 82 U/L (45-117); Anion Gap 13.2 mEq/L (5.0-15.0); BUN Blood Urea Nitrogen 9 mg/dL (7-18); Bicarbonate 25 mEq/L (21-32); Bilirubin Direct < 0.1 mg/dL (0-0.2); Bilirubin Indirect, Calculated ND mg/dL (0.2-0.8); Bilirubin Total 0.3 mg/dL (0.2-1.0); Globulin 3.3 g/dL (2.3-3.5); Glomerular Filtration Rate 103 ml/min (=/>90); Glucose Level 90 mg/dL (74-106); Magnesium 2.1 mg/dL (1.6-2.4); NT PRO-BNP 102 pg/mL (<125); Potassium 3.2 mEq/L (3.5-5.1); Protein, Total 6.9 g/dL (6.4-8.2); Sodium Level 141 mEq/L (136-145); Troponin High Sensitivity 3.2 pg/mL (<58.9)
--- NOTE | 2023-11-30 12:36 | RAD REPORT ---
EXAM DESCRIPTION: RAD - Chest Single View - 11/30/2023 12:21 pm CLINICAL HISTORY: COUGH COMPARISON: Chest Single View dated 09/18/2018; Chest Single View dated 12/24/2017; Chest Single View d ated 08/07/2016; Chest Single View dated 02/14/2016 FINDINGS: Lines: None. Lungs: No evidence of edema or pneumonia. Pleural: No significant pleural effusions or pneumothorax. Cardiac: The heart size is within normal limits. Mediastinum: Within normal limits. Bones: No acute fractures. Other: None IMPRESSION: No acute cardiopulmonary disease.
[2023-11-30] MEDS ORDERED: POTASSIUM 25 MEQ EFFERV TAB ONE (14:09)
[2023-11-30 14:14] LABS: Specific Gravity < 1.005 (1.005-1.030); Sqamous Epithelial None Seen /HPF (None Seen); Urine Bacteria None Seen /HPF (<20); Urine Bilirubin NEGATIVE (Negative); Urine Blood Negative (Negative); Urine Clarity Clear (Clear); Urine Color Colorless (Yellow); Urine Culture Reflex Order NOT NEEDED; Urine Glucose NEGATIVE (Negative); Urine Ketones NEGATIVE (Negative); Urine Microscopic Reflex YN ORDER UMIC; Urine Nitrite NEGATIVE (Negative); Urine Protein NEGATIVE (Negative); Urine RBC <5 /HPF (None Seen); Urine Urobilinogen Normal (Normal); Urine WBC <5 /HPF (<5); Urine pH 5.5 (5.0-7.0)
[2023-11-30 14:24] LABS: Barbiturates NEGATIVE (NEGATIVE); Benzodiazepines NEGATIVE (NEGATIVE); Cocaine NEGATIVE (NEGATIVE); METHAMPHETAM NEGATIVE (NEGATIVE); Methadone NEGATIVE (NEGATIVE); Opiates NEGATIVE (NEGATIVE); Phencyclidine NEGATIVE (NEGATIVE); THC Cannibis NEGATIVE (NEGATIVE)
--- NOTE | 2023-11-30 15:14 | ER ---
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 Pt states "I just wanted to go to sleep I don't want to kill myself". Pt reports she also drank "2 16 oz beers". 11:54 Acuity: DEVON 2 aa5 11:54 Risk Assessment: Do you want to hurt yourself or someone else? Patient reports no aa5 desire to harm self or others. 11:54 Coronavirus screen: At this time, the client does not indicate any symptoms associated aa5 with coronavirus-19. Ebola Screen: Patient denies travel to an Ebola-affected area in the 21 days before illness onset. Initial Sepsis Screen: Does the patient meet any 2 criteria? No. Patient's initial sepsis screen is negative. Does the patient have a suspected source of infection? No. Patient's initial sepsis screen is negative. Onset of symptoms was November 30, 2023. 11:54 Method Of Arrival: EMS: [facility] aa5 Historical: - Allergies: 11:54 Aleve; aa5 - PMHx: 11:54 Bipolar disorder; aa5 - Immunization history:: Adult Immunizations unknown. - Infectious Disease History:: Denies. - Social history:: Smoking status: Patient reports the use of cigarette tobacco products, Patient uses alcohol, Patient/guardian denies using street drugs. Screenin:54 [facility] ED Fall Risk Assessment (Adult) History of falling in the last 3 months, aa5 including since admission No falls in past 3 months (0 pts) Confusion or Disorientation No (0 pts) Intoxicated or Sedated Yes (3 pts) Impaired Gait No (0 pts) Mobility Assist Device Used No (0 pt) Altered Elimination No (0 pt) Score/Fall Risk Level 3 or more points = High Risk Oriented to surroundings, Maintained a safe environment, Educated pt \\T\\ family on fall prevention, incl call for assistance when getting out of bed. Abuse screen: Denies threats or abuse. Nutritional screening: No deficits noted. Tuberculosis screening: No symptoms or risk factors identified. Assessment: 11:54 General: Appears comfortable, Behavior is calm, cooperative, Smells of alcohol, Pt aa5 states "I took the pills because I just wanted to go to sleep, my daughter is getting and her and my son don't get along and I just wanted to sleep but hell no I wasn't trying to kill myself, I would never do that, I love my grandkids" . Pain: Denies pain. Neuro: Level of Consciousness is awake, alert, obeys commands, Oriented to person, place, time, situation, Noise Tester are equal bilaterally Moves all extremities. Speech is normal, Facial symmetry appears normal. Cardiovascular: Heart tones S1 S2 present Rhythm is regular. Respiratory: Airway is patent Respiratory effort is even, unlabored, Respiratory pattern is regular, symmetrical. GI: Abdomen is round non-distended, Bowel sounds present X 4 quads. Abd is soft and non tender X 4 quads. Reports nausea. : No signs and/or symptoms were reported regarding the genitourinary system. EENT: No signs and/or symptoms were reported regarding the EENT system. Derm: Skin is pink, warm \\T\\ dry. Musculoskeletal: Range of motion: intact in all extremities. 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 Administer fluids, administer benzodiazepines as needed, optimize electrolyte levels, minimal recommended observation time is 8 hours and until pt is asymptomatic. Case # [id number]. 14:20 Reassessment: Pt sleeping, easy to awaken to verbal stimuli, equal and unlabored aa5 respirations, skin is pink/warm/dry. . 15:15 Reassessment: Pt will not be discharged home, pending minimal observation time of 8 aa5 hours post ingestion as recommended by poison control, aware. . 16:00 Reassessment: Pt sleeping, equal and unlabored respirations, pt awakens easily to aa5 verbal stimuli, states no complaints at this time. . 17:00 Reassessment: Pt resting in bed with eyes closed, awakened upon me entering the room, aa5 states no complaints. . Neuro: Oriented to person, place, time, situation. 18:00 Reassessment: Patient is alert, oriented x 3, equal unlabored respirations, skin aa5 warm/dry/pink. Pt assisted to restroom via wheelchair, pt reports feeling dizzy, and was noted to be unsteady. Pt assisted back into bed, extra warm blankets provided for comfort. Pt's significant other at bedside . 20:07 Reassessment: PARTNER AT BEDSIDE. INSTRUCTED TO ASSIST PATIENT HOME FOR THE NEXT 24 rv HOURS. Patient states feeling better. Patient states symptoms have improved. Overdose: 11:54 [place] Suicide Severity Screening: "In the past month, have you wished you were aa5 or wished you could go to sleep and not wake up?" Patient responds "no." "In the past month, have you actually had any thoughts of killing yourself?" Patient responds "no." "In your lifetime, have you ever done anything, started to do anything, or prepared to do anything to end your life?" Patient responds "no.". Vital Signs: 11:54 BP 99 / 81; Pulse 73; Resp 18 S; Temp 97.2(TE); Pulse Ox 100% on R/A; aa5 12:30 BP 110 / 76; Pulse 70; Resp 15 S; Pulse Ox 100% on R/A; aa5 14:17 BP 107 / 75; Pulse 60; Resp 16 S; Pulse Ox 100% on R/A; aa5 15:00 BP 98 / 61; Pulse 80; Resp 16 S; Pulse Ox 99% on R/A; aa5 15:30 BP 98 / 66; Pulse 80; Resp 14 S; Pulse Ox 99% on R/A; aa5 16:00 BP 84 / 66; Pulse 64; Resp 15 S; Pulse Ox 97% on R/A; aa5 16:30 BP 84 / 53; Pulse 75; Resp 15 S; Pulse Ox 97% on R/A; aa5 16:50 BP 90 / 58; Pulse 74; Resp 16 S; Pulse Ox 98% on R/A; aa5 17:15 BP 117 / 81; Pulse 74; Resp 16 S; Temp 97.8(TE); Pulse Ox 97% on R/A; aa5 18:45 BP 92 / 65; Pulse 83; Resp 18 S; Pulse Ox 99% on R/A; aa5 20:08 BP 117 / 73; Pulse 86; Resp 17; Temp 98; Pulse Ox 99% ; rv 16:00 MD notified of decreased BP, (MAP is 73) aa5 Constantino Coma Score: 20:08 Eye Response: spontaneous(4). Motor Response: obeys commands(6). Verbal Response: rv oriented(5). Total: 15. ED Course: 11:54 Patient arrived in ED. 6 11:54 Arm band placed on. aa5 11:54 Patient has correct armband on for positive identification. Bed in low position. Call aa5 light in reach. Side rails up X2. Client placed on continuous cardiac and pulse oximetry monitoring. NIBP monitoring applied. panel monitor on. Pulse ox on. NIBP on. 11:56 Marisela Kahn, LADONNA is Primary Nurse. aa5 12:04 Prakash Garay MD is Attending Physician. [facility] 12:04 Triage completed. aa5 12:12 Acetaminophen Sent. 6 12:12 ETOH Level Sent. 6 12:12 Ptt, Activated Sent. 6 12:12 Salicylate Sent. 6 12:23 XRAY Chest (1 view) In Process Unspecified. EDMS 15:14 Stefan Veiira MD is Referral Physician. [facility] 19:00 Report given to LADONNA Johnston and LADONNA Mcgraw. aa5 20:06 No provider procedures requiring assistance completed. IV discontinued, intact, rv bleeding controlled, No redness/swelling at site. Pressure dressing applied, G18 LEFT AC. Administered Medications: 12:10 Drug: NS 0.9% IV 1000 ml IV at 1 bolus Per protocol; 1000 mL bolus Route: IV; Rate: 1 aa5 bolus; Site: left antecubital; 13:10 Follow up: IV Status: Completed infusion; IV Intake: 1000ml aa5 12:29 Drug: Promethazine IVP 12.5 mg IVP once Route: IVP; Site: left antecubital; aa5 13:00 Follow up: Response: Nausea is decreased; Nausea is decreased, dry heaving stopped aa5 14:26 Not Given (Physician Discretion): [id number] mg IVP once aa5 14:26 Drug: Potassium PO Effervescent Tablet 25 mEq PO once; dissolve in 4 ounces of water or aa5 juice Route: PO; 17:35 Follow up: Response: No adverse reaction aa5 16:30 Drug: NS 0.9% IV 1000 ml IV at 1 bolus Per protocol; 1000 mL bolus Route: IV; Rate: 1 aa5 bolus; Site: left antecubital; 17:35 Follow up: IV Status: Completed infusion; IV Intake: 1000ml aa5 16:30 Drug: Banana Bag - (Multivitamin IV 1 amp, NS 0.9% IV 1000 ml, Thiamine IV 100 mg, aa5 foLIC Acid IVPB 1 mg) IV at bolus once Route: IV; Rate: bolus; Site: left antecubital; 18:45 Follow up: IV Status: Completed infusion; IV Intake: 1000ml aa5 16:30 Drug: Thiamine IV 100 mg IV at bolus once Route: IV; Rate: bolus; Site: left aa5 antecubital; 20:06 Follow up: Response: No adverse reaction; IV Status: Completed infusion rv Medication: 13:09 VIS not applicable for this client. aa5 Intake: 13:10 IV: 1000ml; Total: 1000ml. aa5 17:35 IV: 1000ml; Total: 2000ml. aa5 18:45 IV: 1000ml; Total: 3000ml. aa5 Outcome: 15:13 Discharge ordered by . zhen 15:15 Condition: See nursing notes for discharge home pending. aa5 20:07 Discharged to home via wheelchair, with significant other, rv 20:07 Discharge instructions given to patient, Instructed on discharge instructions, follow up and referral plans. Demonstrated understanding of instructions, follow-up care, 20:08 Patient left the ED. 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 Pt states "I just wanted to go to sleep I don't want to kill myself" aa5 13:08 11:54 General: Appears comfortable, Behavior is calm, cooperative, aa5 aa5 13:09 11:54 General: Appears comfortable, Behavior is calm, cooperative, Pt states "I took aa5 the pills because I just wanted to go to sleep, my daughter is getting and her and my son don't get along and I just wanted to sleep but hell no I wasn't trying to kill myself, I would never do that, I love my grandkids" . aa5 14:26 14:26 Response: Nausea is decreased; Nausea is decreased, dry heaving stopped aa5 aa5
--- NOTE | 2023-11-30 15:14 | EDPHYS ---
Physician Documentation [facility] Name: Angelica Wen Age: 58 yrs Sex: Female : 1965 Arrival Date: 11/30/2023 Time: 11:52 Bed 3 Private MD: ED Physician Prakash Garay HPI: 11/29 15:05 This 58 yrs old Female presents to ER via EMS with complaints of Overdose. zhen 15:05 The patient presents to the emergency department after a known overdose, that was zhen accidental, WANTED TO SLEEP , NOT SUICIDAL. Context: Method: the patient has a confirmed or suspected ingestion, TRAZADONE. Associated signs and symptoms: The patient has no apparent associated signs or symptoms. Severity of symptoms: At their worst the symptoms were mild in the emergency department the symptoms are unchanged. The patient has not experienced similar symptoms in the past. Historical: - Allergies: 11:54 Aleve; aa5 - PMHx: 11:54 Bipolar disorder; aa5 - Immunization history:: Adult Immunizations unknown. - Infectious Disease History:: Denies. - Social history:: Smoking status: Patient reports the use of cigarette tobacco products, Patient uses alcohol, Patient/guardian denies using street drugs. ROS: 15:07 Constitutional: Negative for fever, chills, and weight loss, Eyes: Negative for injury, zhen pain, redness, and discharge, ENT: Negative for injury, pain, and discharge, Neck: Negative for injury, pain, and swelling, Cardiovascular: Negative for chest pain, palpitations, and edema, Respiratory: Negative for shortness of breath, cough, wheezing, and pleuritic chest pain, Abdomen/GI: Negative for abdominal pain, nausea, vomiting, diarrhea, and constipation, Back: Negative for injury and pain, : Negative for injury, bleeding, discharge, and swelling, MS/Extremity: Negative for injury and deformity, Skin: Negative for injury, rash, and discoloration, Neuro: Negative for headache, weakness, numbness, tingling, and seizure, Allergy/Immunology: Negative for hives, rash, and allergies, Endocrine: Negative for neck swelling, polydipsia, polyuria, polyphagia, and marked weight changes, Hematologic/Lymphatic: Negative for swollen nodes, abnormal bleeding, and unusual bruising, 15:07 Psych: Positive for anxiety, depression, TOOK TRAZODONE , Exam: 15:07 Constitutional: This is a well developed, well nourished patient who is awake, alert, zhen and in no acute distress. Head/Face: Normocephalic, atraumatic. Eyes: Pupils equal round and reactive to light, extra-ocular motions intact. Lids and lashes normal. Conjunctiva and sclera are non-icteric and not injected. Cornea within normal limits. Periorbital areas with no swelling, redness, or edema. ENT: Nares patent. No nasal discharge, no septal abnormalities noted. Tympanic membranes are normal and external auditory canals are clear. Oropharynx with no redness, swelling, or masses, exudates, or evidence of obstruction, uvula midline. Mucous membranes moist. Neck: Trachea midline, no thyromegaly or masses palpated, and no cervical lymphadenopathy. Supple, full range of motion without nuchal rigidity, or vertebral point tenderness. No Meningismus. Chest/axilla: Normal chest wall appearance and motion. Nontender with no deformity. No lesions are appreciated. Cardiovascular: Regular rate and rhythm with a normal S1 and S2. No gallops, murmurs, or rubs. Normal PMI, no JVD. No pulse deficits. Respiratory: Lungs have equal breath sounds bilaterally, clear to auscultation and percussion. No rales, rhonchi or wheezes noted. No increased work of breathing, no retractions or nasal flaring. Abdomen/GI: Soft, non-tender, with normal bowel sounds. No distension or tympany. No guarding or rebound. No evidence of tenderness throughout. Back: No spinal tenderness. No costovertebral tenderness. Full range of motion. Female : Normal external genitalia. Skin: Warm, dry with normal turgor. Normal color with no rashes, no lesions, and no evidence of cellulitis. MS/ Extremity: Pulses equal, no cyanosis. Neurovascular intact. Full, normal range of motion. Neuro: Awake and alert, GCS 15, oriented to person, place, time, and situation. Cranial nerves II-XII grossly intact. Motor strength 5/5 in all extremities. Sensory grossly intact. Cerebellar exam normal. Normal gait. Psych: Awake, alert, with orientation to person, place and time. Behavior, mood, and affect are within normal limits. 15:07 ECG was reviewed by the Attending Physician. Vital Signs: 11:54 BP 99 / 81; Pulse 73; Resp 18 S; Temp 97.2(TE); Pulse Ox 100% on R/A; aa5 12:30 BP 110 / 76; Pulse 70; Resp 15 S; Pulse Ox 100% on R/A; aa5 14:17 BP 107 / 75; Pulse 60; Resp 16 S; Pulse Ox 100% on R/A; aa5 15:00 BP 98 / 61; Pulse 80; Resp 16 S; Pulse Ox 99% on R/A; aa5 15:30 BP 98 / 66; Pulse 80; Resp 14 S; Pulse Ox 99% on R/A; aa5 16:00 BP 84 / 66; Pulse 64; Resp 15 S; Pulse Ox 97% on R/A; aa5 16:30 BP 84 / 53; Pulse 75; Resp 15 S; Pulse Ox 97% on R/A; aa5 16:50 BP 90 / 58; Pulse 74; Resp 16 S; Pulse Ox 98% on R/A; aa5 17:15 BP 117 / 81; Pulse 74; Resp 16 S; Temp 97.8(TE); Pulse Ox 97% on R/A; aa5 18:45 BP 92 / 65; Pulse 83; Resp 18 S; Pulse Ox 99% on R/A; aa5 20:08 BP 117 / 73; Pulse 86; Resp 17; Temp 98; Pulse Ox 99% ; rv 16:00 MD notified of decreased BP, (MAP is 73) aa5 Constantino Coma Score: 20:08 Eye Response: spontaneous(4). Motor Response: obeys commands(6). Verbal Response: rv oriented(5). Total: 15. MDM: 12:04 Patient medically screened. zhen 15:09 Differential diagnosis: polypharmacy. Differential Diagnosis: CVA, electrolyte zhen abnormality, alcohol intoxication, hypoglycemia, overdose, volume depletion. Data reviewed: vital signs, nurses notes, EMS record, lab test result(s), EKG, radiologic studies, plain films. Consideration of Admission/Observation Escalation of care including admission/observation considered. I considered the following discharge prescriptions or medication management in the emergency department Medications were administered in the Emergency Department. See MAR. Independent interpretation of the following test(s) in the Emergency Department EKG: See my EKG interpretation above. Test considered but Not performed: CT: NO CT HEAD. Historians other than the Patient: PT WELL INFORMED , PLEASANT. Care significantly affected by the following chronic conditions: BIPOLAR. 11/29 12:06 Order name: Basic Metabolic Panel; Complete Time: 13:38 [facility] 11/29 12:06 Order name: CBC with Diff; Complete Time: 13:38 [facility] 11/29 12:06 Order name: LFT's; Complete Time: 13:38 [facility] 11/29 12:06 Order name: Magnesium; Complete Time: 13:38 [facility] 11/29 12:06 Order name: NT PRO-BNP; Complete Time: 13:[facility] 11/29 12:06 Order name: PT-INR; Complete Time: 13:38 [facility] 11/29 12:06 Order name: Troponin HS; Complete Time: 13:38 [facility] 11/29 12:06 Order name: Acetaminophen; Complete Time: 13:38 [facility] 11/29 12:06 Order name: ETOH Level; Complete Time: 13:38 [facility] 11/29 12:06 Order name: Ptt, Activated; Complete Time: 13:38 [facility] 11/29 12:06 Order name: Salicylate; Complete Time: 13:38 [facility] 11/29 12:06 Order name: Urinalysis w/ reflexes; Complete Time: 15:04 [facility] 11/29 12:06 Order name: Urine Drug Screen; Complete Time: 15:04 [facility] 11/29 12:06 Order name: XRAY Chest (1 view); Complete Time: 13:38 [facility] 11/29 12:06 Order name: EKG; Complete Time: 12:06 [facility] 11/29 12:06 Order name: Cardiac monitoring; Complete Time: 12:10 [facility] 11/29 12:06 Order name: EKG - Nurse/Tech; Complete Time: 12:10 [facility] 11/29 12:06 Order name: IV Saline Lock; Complete Time: 12:10 [facility] 11/29 12:06 Order name: Labs collected and sent; Complete Time: 12:10 [facility] 11/29 12:06 Order name: O2 Per Protocol; Complete Time: 12:10 [facility] 11/29 12:06 Order name: O2 Sat Monitoring; Complete Time: 12:10 [facility] 11/29 12:06 Order name: Suicide Precautions; Complete Time: 12:24 [facility] 11/29 12:06 Order name: Suicide Screening ([place]); Complete Time: 12:24 [facility] 11/29 12:06 Order name: Misc. Order: CALL POISON CONTROL FOLLOW RECOMMENDATIONS; Complete Time: zhen 12:10 04 15:05 Order name: PO challenge: JUICE; Complete Time: 15:28 zhen EC:07 Rate is 62 beats/min. Rhythm is regular. QRS [place] is Normal. TN interval is normal. QRS zhen interval is normal. QT interval is normal. No Q waves. T waves are Normal. No ST changes noted. Clinical impression: NSR w/ Non-specific ST/T Changes and No evidence of ischemia. Interpreted by me. Reviewed by me. Administered Medications: 12:10 Drug: NS 0.9% IV 1000 ml IV at 1 bolus Per protocol; 1000 mL bolus Route: IV; Rate: 1 aa5 bolus; Site: left antecubital; 13:10 Follow up: IV Status: Completed infusion; IV Intake: 1000ml aa5 12:29 Drug: Promethazine IVP 12.5 mg IVP once Route: IVP; Site: left antecubital; aa5 13:00 Follow up: Response: Nausea is decreased; Nausea is decreased, dry heaving stopped aa5 14:26 Not Given (Physician Discretion): .5 mg IVP once aa5 14:26 Drug: Potassium PO Effervescent Tablet 25 mEq PO once; dissolve in 4 ounces of water or aa5 juice Route: PO; 17:35 Follow up: Response: No adverse reaction aa5 16:30 Drug: NS 0.9% IV 1000 ml IV at 1 bolus Per protocol; 1000 mL bolus Route: IV; Rate: 1 aa5 bolus; Site: left antecubital; 17:35 Follow up: IV Status: Completed infusion; IV Intake: 1000ml aa5 16:30 Drug: Banana Bag - (Multivitamin IV 1 amp, NS 0.9% IV 1000 ml, Thiamine IV 100 mg, aa5 foLIC Acid IVPB 1 mg) IV at bolus once Route: IV; Rate: bolus; Site: left antecubital; 18:45 Follow up: IV Status: Completed infusion; IV Intake: 1000ml aa5 16:30 Drug: Thiamine IV 100 mg IV at bolus once Route: IV; Rate: bolus; Site: left aa5 antecubital; 20:06 Follow up: Response: No adverse reaction; IV Status: Completed infusion rv Disposition Summary: 11/30/23 15:13 Discharge Ordered Notes: Location: Home zhen Problem: new zhen Symptoms: have improved zhen Condition: Stable zhen Diagnosis - Alcohol abuse with intoxication zhen - Bipolar disorder, unspecified zhen - Adverse effect of other drugs, medicaments and biological substances - TRAZADONE zhen - Hypokalemia zhen Followup: zhen - With: Private Physician - When: 2 - 3 days - Reason: Recheck today's complaints, Continuance of care, Re-evaluation by your physician Followup: zhen - With: Stefan Vieira MD - When: 2 - 3 days - Reason: Recheck today's complaints, Re-evaluation by your physician Discharge Instructions: - Discharge Summary Sheet zhen - Alcohol Intoxication zhen - Potassium Content of Foods zhen - Suicidal Feelings: How to Help Yourself zhen - Helping Someone Who is Suicidal zhen - Alcohol Intoxication, [id number] zhen - Hypokalemia zhen - Intentional Drug Overdose zhen - Managing Bipolar Disorder zhen - Mixed Bipolar Disorder zhen - Supporting Someone With Bipolar Disorder zhen Forms: - Medication Reconciliation Form zhen - Thank You Letter zhen - Antibiotic Education zehn - Prescription Opioid Use zhen - Patient Portal Instructions zhen - Leadership Thank You Letter zhen Signatures: Dispatcher [employer] EDMS Prakash Garay MD MD cha Calderon, Audri, RN RN aa5 Preston King RN rv Corrections: (The following items were deleted from the chart) 12:06 12:06 BASIC METABOLIC PANEL+C.LAB.BRZ ordered. EDMS EDMS 12:06 12:06 CBC+H.LAB.BRZ ordered. EDMS EDMS 12:06 12:06 HEPATIC FUNCTION+C.LAB.BRZ ordered. EDMS EDMS 12:06 12:06 MAGNESIUM+C.LAB.BRZ ordered. EDMS EDMS 12:06 12:06 PROBNP+C.LAB.BRZ ordered. EDMS EDMS 12:06 12:06 PROTIME (+INR)+COAG.LAB.BRZ ordered. EDMS EDMS 12:06 12:06 Troponin High Sensitivity+C.LAB.BRZ ordered. EDMS EDMS 12:06 12:06 ACETAMINOPHEN+C.LAB.BRZ ordered. EDMS EDMS 12:06 12:06 ETHANOL+C.LAB.BRZ ordered. EDMS EDMS 12:06 12:06 PTT, ACTIVATED+COAG.LAB.BRZ ordered. EDMS EDMS : 12:06 SALICYLATE+C.LAB.BRZ ordered. EDMS EDMS : 12:06 Urinalysis+U.LAB.BRZ ordered. EDMS EDMS : 12:06 URINE DRUG SCREEN+UC.LAB.BRZ ordered. EDMS EDMS
[2023-11-30] MEDS ORDERED: THIAMINE 200 MG/2 ML INJ ONE (16:32)
[2023-11-30] MEDS ORDERED: MULTIVITAMINS 10 ML VIAL (INJ) IV ONE (16:33)
[2023-11-30] MEDS ORDERED: NA CHLORIDE 0.9% 2,000 ML ONE (16:33)
[2023-12-01 00:14] VITALS: BP 117/73; TEMP 98; O2SAT 99
== END 2023-11-30 20:08 | disposition home or self-care (01) ==
LOC: ER 11:52
DX: F10.129 Alcohol abuse with intoxication, unspecified (principal); E87.6 Hypokalemia; F31.9 Bipolar disorder, unspecified; T43.215A Adverse effect of selective serotonin and norepinephrine reuptake inhibitors, initial encounter
CPT/HCPCS: 36415; 71045; 80048; 80076; 80143; 80179; 80307; 81001; 82077; 83735; 83880; 84484; 85025; 85610; 85730; 93005; 96361; 96365; 96366; 96368; 96375; 99285; J2550; J3411; J7030

== ENCOUNTER 2024-12-30 06:38 | Emergency (ER) | payer OTHER, SELFPAY ==
[2024-12-30] MEDS ORDERED: HYDROCODONE/APAP 10/325 TAB ONE (07:26)
--- NOTE | 2024-12-30 08:23 | RAD REPORT ---
Exam:Knee Left 3 View HISTORY: Left knee pain FINDINGS: 4 mm bony/calcific density adjacent to superior aspect of the patella could be chronic. A small acute avulsion fracture can have a similar experience. Clinical correlation is needed tenderness in this region to suggest this. Otherwise, no fracture or dislocation seen
--- NOTE | 2024-12-30 08:54 | ER ---
Nurse's Notes [facility] Name: Angelica Wen Age: 59 yrs Sex: Female : 1965 Arrival Date: 12/30/2024 Time: 06:38 Bed 10 Private MD: Diagnosis: Pain in left knee;Unspecified internal derangement of left knee Presentation: 12/30 07:24 Chief complaint: Patient states: L knee pain that began after hearing a pop while ss moving a mattress last night. Coronavirus screen: Client denies travel out of the [place] in the last 14 days. Ebola Screen: Patient denies exposure to infectious person. Patient denies travel to an Ebola-affected area in the 21 days before illness onset. Initial Sepsis Screen: Does the patient meet any 2 criteria? No. Patient's initial sepsis screen is negative. Does the patient have a suspected source of infection? No. Patient's initial sepsis screen is negative. Risk Assessment: Do you want to hurt yourself or someone else? Patient reports no desire to harm self or others. Onset of symptoms was December 29, 2024. 07:24 Method Of Arrival: Ambulatory 07:24 Acuity: DEVON 4 ss Historical: - Allergies: 07:28 Aleve; ss 07:28 Midol; ss - PMHx: 07:28 Bipolar disorder; ss - Infectious Disease History:: Denies. - Family history:: not pertinent. - Social history:: Smoking status: Patient reports the use of cigarette tobacco products, smokes one-half pack cigarettes per day. - Hospitalizations: : No recent hospitalization is reported. Screenin:44 Abuse screen: Denies threats or abuse. Denies injuries from another. Nutritional ss screening: No deficits noted. Tuberculosis screening: Never had TB. Assessment: 08:44 General: Appears uncomfortable, Behavior is calm, cooperative. Pain: Complains of pain ss in left knee Pain currently is 10 out of 10 on a pain scale. Pain began last night Is continuous. Neuro: Level of Consciousness is awake, alert, obeys commands, Oriented to person, place, time, situation. Cardiovascular: Pulses are palpable in right posterior tibial artery and left posterior tibial artery. Respiratory: Respiratory effort is even, unlabored, Respiratory pattern is regular, symmetrical. Derm: Skin is intact, is healthy with good turgor, Skin is pink, warm \T\ dry. normal. Musculoskeletal: Swelling absent. 09:12 Reassessment: Patient appears in no apparent distress at this time. Pt appears much ss more comfortable. Appears calm. RR even and unlabored. Asking for more coffee. Coffee given per request. Vital Signs: 07:24 BP 108 / 97; Pulse 77; Resp 16; Temp 98(TE); Pulse Ox 100% on R/A; Weight 56.25 kg; ss Height 5 ft. 3 in. ; Pain 10/10; 07:24 Body Mass Index 21.97 (56.25 kg, 160.02 cm) ss 07:24 Pain Scale: Adult ss ED Course: 06:41 Patient arrived in ED. mr 06:56 Modesto Saxena MD is Attending Physician. rn 07:24 Gabrielle Acharya RN is Primary Nurse. ss 07:28 Triage completed. ss 07:28 Arm band placed on right wrist. ss 08:05 XRAY Knee LEFT 3 view In Process Unspecified. EDMS 08:44 Patient has correct armband on for positive identification. ss 08:44 No provider procedures requiring assistance completed. Patient did not have IV access ss during this emergency room visit. Crutch training done. Knee immobilizer applied on left knee. 08:53 Nic Cooley MD is Referral Physician. rn Administered Medications: 07:34 Drug: [place] PO 10 mg-325 mg 1 tabs PO once Route: PO; ss 08:43 Follow up: Response: No adverse reaction; RASS: Alert and Calm (0) ss Medication: 08:44 VIS not applicable for this client. Outcome: 08:53 Discharge ordered by . rn 09:12 Discharged to home via wheelchair, with crutches, with family, ss 09:12 Condition: improved 09:12 Discharge instructions given to patient, family, Instructed on discharge instructions, follow up and referral plans. medication usage, Demonstrated understanding of instructions, follow-up care, medications, Prescriptions given X 2, 09:13 Patient left the ED. ss Signatures: Dispatcher [employer] EDTX Tiffany Snowden, Reg Reg mr Modesto Saxena MD MD rn Blanchard, Shelby, RN RN ss
--- NOTE | 2024-12-30 08:54 | EDPHYS ---
Physician Documentation [facility] Name: Angelica Wen Age: 59 yrs Sex: Female : 1965 Arrival Date: 12/30/2024 Time: 06:38 Bed 10 Private MD: ED Physician Modesto Saxena HPI: 12/30 07:26 This 59 yrs old Female presents to ER via Unassigned with complaints of Knee rn Injury. 07:26 The patient presents with decreased range of motion, an injury, pain. The complaints rn affect the left knee. Onset: The symptoms/episode began/occurred last night. Severity of symptoms: At their worst the symptoms were moderate, in the emergency department the symptoms are unchanged. The patient has not recently seen a physician. Patient reports moving a mattress last night, was twisting and felt a pop in her left knee, now having pain in left knee.. Historical: - Allergies: 07:28 Aleve; ss 07:28 Midol; ss - PMHx: 07:28 Bipolar disorder; ss - Infectious Disease History:: Denies. - Family history:: not pertinent. - Social history:: Smoking status: Patient reports the use of cigarette tobacco products, smokes one-half pack cigarettes per day. - Hospitalizations: : No recent hospitalization is reported. ROS: 07:26 Constitutional: Negative for fever, chills, and weight loss, MS/Extremity: Positive for rn left knee pain and injury. Negative for direct blow. Exam: 07:26 Constitutional: This is a well developed, well nourished patient who is awake, alert, rn appears in pain when attempting to move the left knee MS/ Extremity: Pulses equal, no cyanosis. Neurovascular intact. Painful range of motion left knee with mild joint effusion. No open wounds. No gross deformity. No bony tenderness. Vital Signs: 07:24 BP 108 / 97; Pulse 77; Resp 16; Temp 98(TE); Pulse Ox 100% on R/A; Weight 56.25 kg; ss Height 5 ft. 3 in. ; Pain 10/10; 07:24 Body Mass Index 21.97 (56.25 kg, 160.02 cm) 07:24 Pain Scale: Adult ss MDM: 07:20 Medical Screening Exam initiated rn 08:52 Differential diagnosis: closed fracture, contusion, ligamentous or tendon injury, knee rn effusion, strain, sprain. Data reviewed: vital signs, nurses notes, radiologic studies, plain films, and as a result, I will discharge patient. Counseling: I had a detailed discussion with the patient and/or guardian regarding the historical points, exam findings, and any diagnostic results supporting the discharge/admit diagnosis, radiology results, the need for outpatient follow up, to return to the emergency department if symptoms worsen or persist or if there are any questions or concerns that arise at home. Special discussion: I discussed with the patient/guardian in detail that at this point there is no indication for admission to the hospital. It is understood, however, that if the symptoms persist or worsen the patient needs to return immediately for re-evaluation. Based on the history and exam findings, there is no indication for further emergent testing or inpatient evaluation. I discussed with the patient/guardian the need to see the orthopedic surgeon for further evaluation of the symptoms. 12/30 07:21 Order name: XRAY Knee LEFT 3 view; Complete Time: 08:24 rn 12/30 07:21 Order name: Knee Immobilizer; Complete Time: 08:43 rn 12/30 08:44 Order name: Crutches; Complete Time: 08:48 ss Administered Medications: 07:34 Drug: [place] PO 10 mg-325 mg 1 tabs PO once Route: PO; ss 08:43 Follow up: Response: No adverse reaction; RASS: Alert and Calm (0) ss Disposition Summary: 12/30/24 08:53 Discharge Ordered Notes: Location: Home rn Problem: new rn Symptoms: have improved rn Condition: Stable rn Diagnosis - Pain in left knee rn - Unspecified internal derangement of left knee rn Followup: rn - With: Nic Cooley MD - When: As needed - Reason: Recheck today's complaints, Re-evaluation by your physician Discharge Instructions: - Discharge Summary Sheet rn - How to Use a Knee Immobilizer rn - Acute Knee Pain, Adult rn Forms: - Medication Reconciliation Form rn - Antibiotic varnish mixer - Prescription Opioid Use rn - Patient Portal Instructions rn - Leadership Thank You Letter rn Prescriptions: - Cyclobenzaprine 10 mg Oral tablet - take 1 tablet ORAL route every 8-12 hours As needed; 15 tablet; Refills: 0, rn Product Selection Permitted - Tramadol 50 mg Oral Tablet - take 1 tablet ORAL route every 8 hours as needed; 12 tablet; Refills: 0, rn Product Selection Permitted Signatures: Dispatcher [employer] Modesto Flores MD MD rn Blanchard, Shelby, RN RN ss Corrections: (The following items were deleted from the chart) 07:21 07:21 Knee Left 3 View+RAD.RAD.BRZ ordered. EDMS EDMS
[2024-12-30 09:21] VITALS: BP 108/97; TEMP 98; O2SAT 100
== END 2024-12-30 09:13 | disposition home or self-care (01) ==
LOC: ER 06:38
DX: M23.92 Unspecified internal derangement of left knee (principal); F17.210 Nicotine dependence, cigarettes, uncomplicated
CPT/HCPCS: 99283

== ENCOUNTER 2025-06-16 06:01 | Emergency (ER) | payer OTHER ==
[2025-06-16 06:55] LABS: Influenza A Ag Negative; Influenza B Ag Negative; SARS-CoV-2 Antigen Rapid Res Negative (Negative)
--- NOTE | 2025-06-16 09:56 | ER ---
Nurse's Notes [facility] Name: Angelica Wen Age: 59 yrs Sex: Female : 1965 Arrival Date: 06/16/2025 Time: 06:01 Bed DIS1 Private MD: Diagnosis: Presentation: 06/16 06:13 Chief complaint: Patient states: bodyaches, n/v/d for 2 days. Coronavirus screen: br2 Client denies travel out of the [place] in the last 14 days. Ebola Screen: Patient denies exposure to infectious person. Initial Sepsis Screen: Does the patient meet any 2 criteria? No. Patient's initial sepsis screen is negative. Does the patient have a suspected source of infection? No. Patient's initial sepsis screen is negative. Risk Assessment: Do you want to hurt yourself or someone else? Patient reports no desire to harm self or others. Onset of symptoms was June 14, 2025. 06:13 Method Of Arrival: Ambulatory br2 06:13 Acuity: DEVON 3 br2 Triage Assessment: 06:16 General: Appears in no apparent distress. comfortable, Behavior is calm, cooperative. br2 Pain: Complains of pain in head, chest, abdomen, pelvis, right arm, left arm, right leg and left leg Pain currently is 10 out of 10 on a pain scale. 06:28 Neuro: [place] Agitation-Sedation Scale (RASS): 0 - Alert and Calm Level of br2 Consciousness is awake, alert, obeys commands, Oriented to person, place, time, situation. Cardiovascular: Parent/caregiver reports patient has had BREAST PAIN. Respiratory: Airway is patent Respiratory effort is even, unlabored, Respiratory pattern is regular, symmetrical. 06:28 GI: Reports diarrhea, nausea, vomiting. : No signs and/or symptoms were reported br2 regarding the genitourinary system. Derm: No signs and/or symptoms reported regarding the dermatologic system. Musculoskeletal: Reports BODYACHES ALL OVER. Historical: - Allergies: 06:16 Aleve; br2 06:16 Midol; br2 - PMHx: 06:16 Bipolar disorder; br2 - Immunization history:: Adult Immunizations not up to date. - Infectious Disease History:: Denies. - Social history:: Smoking status: Patient reports the use of cigarette tobacco products, denies chronic smoking, but will smoke occasionally, Patient uses alcohol, occasionally. Patient/guardian denies using street drugs. Screenin:27 Clinical [place] Withdrawal Assessment for Alcohol, revised (CIWA-Ar): br2 Nausea/Vomiting:. [facility] ED Fall Risk Assessment (Adult) History of falling in the last 3 months, including since admission No falls in past 3 months (0 pts) Confusion or Disorientation No (0 pts) Intoxicated or Sedated No (0 pts) Impaired Gait No (0 pts) Mobility Assist Device Used Altered Elimination No (0 pt) Score/Fall Risk Level 0 - 2 = Low Risk Oriented to surroundings. Abuse screen: Denies threats or abuse. Denies injuries from another. Nutritional screening: No deficits noted. Tuberculosis screening: No symptoms or risk factors identified. Assessment: 08:38 General: Dr Corea unable to locate pt in the lobby. Attempted to contact pt via kb3 telephone to convey results and discharge information. No answer. Vital Signs: 06:13 BP 108 / 78; Pulse 72; Resp 18; Temp 97.2; Pulse Ox 99% ; Weight 64.41 kg; Height 5 ft. br2 3 in. ; Pain 10/10; 06:13 Body Mass Index 25.15 (64.41 kg, 160.02 cm) br2 06:13 Pain Scale: Adult br2 ED Course: 06:06 Patient arrived in ED. gm2 06:16 Triage completed. br2 06:16 Arm band placed on right wrist. br2 07:08 Andrés Corea DO is Attending Physician. ms3 09:46 attempted to contact pt, no answer on cell phone. bd Administered Medications: No medications were administered Outcome: 09:55 Patient left the ED. kb3 Signatures: Majo Clifton bd Andrés Corea DO DO ms3 Cady Tubbs RN RN kb3 Nelli Lopes gm2 Rekha Granado RN RN br2
== END 2025-06-16 09:55 | disposition left against medical advice (07) ==
LOC: ER 06:01
DX: R11.2 Nausea with vomiting, unspecified (principal); R19.7 Diarrhea, unspecified; M79.10 Myalgia, unspecified site; Z11.52 Encounter for screening for COVID-19
CPT/HCPCS: 36415; 87070; 87428; 99281